=== PATIENT | male | born 1965 | race Caucasian/White ===

== ENCOUNTER 2017-02-06 10:27 | Inpatient (IN) | payer MEDICAID, OTHER ==
--- NOTE | 2017-02-06 11:59 | RAD ---
HISTORY: cough/sob COMPARISON: Chest x-ray portion of obstructive series performed 10/25/13 TECHNIQUE: Chest PA and lateral FINDINGS: Examination limited by habitus. LUNGS: No focal consolidation. Please note that chest x-ray has limited sensitivity for the detection of pulmonary masses. PLEURA: No significant pleural effusion identified. No definite pneumothorax . CARDIOVASCULAR: The cardiomediastinal silhouette appears within normal limits of size. OSSEOUS STRUCTURES: Degenerative changes of the spine. VISUALIZED UPPER ABDOMEN: Unremarkable. OTHER FINDINGS: None. IMPRESSION: No focal consolidation, significant pleural effusion, or definite pneumothorax identified.
--- NOTE | 2017-02-06 12:32 | C.PDOC ---
History Of Present Illness Benoit Guan, 51-year-old male who denies significant PMHx, presents to the emergency department with complaints of shortness of breath. Patient states he has been experiencing a non-productive cough for the past four weeks. Patient states he is taking Mucinex at home with minimal relief. One week ago, he developed dyspnea on exertion and worsening shortness of breath, resulting in him coming to the ED for evaluation. Denies chest pain, fevers, dizziness, nausea/vomiting, or any other associated symptoms. No other complaints at this time. Chief Complaint (Nursing): Shortness Of Breath History Per: Patient History/Exam Limitations: no limitations Onset/Duration Of Symptoms: Days Current Symptoms Are (Timing): Still Present Past Medical History Reviewed: Historical Data, Nursing Documentation, Vital Signs Vital Signs: Last Vital Signs Temp 98.5 F 02/06/17 15:10 Pulse 81 02/06/17 15:54 Resp 16 02/06/17 15:54 BP 136/75 02/06/17 15:54 Pulse Ox 96 02/06/17 15:58 Surgical History: Cholecystectomy Family History: States: Unknown Family Hx - Social History Hx Tobacco Use: No Hx Alcohol Use: Yes Hx Substance Use: No - Immunization History Hx Tetanus Toxoid Vaccination: No Hx Influenza Vaccination: No Hx Pneumococcal Vaccination: No Review Of Systems Except As Marked, All Systems Reviewed And Found Negative. Constitutional: Negative for: Fever, Chills Respiratory: Positive for: Cough, Shortness of Breath, SOB with Excertion Gastrointestinal: Negative for: Nausea, Vomiting Musculoskeletal: Negative for: Back Pain Skin: Negative for: Rash Neurological: Negative for: Weakness, Numbness, Headache, Dizziness Physical Exam - Physical Exam Appears: Non-toxic, No Acute Distress Skin: Warm, Dry, Pale, No Rash Head: Atraumatic, Normacephalic Eye(s): bilateral: Normal Inspection, PERRL, EOMI, Conjunctiva Pale Nose: Normal Oral Mucosa: Moist Lips: Normal Appearing Neck: Normal ROM Cardiovascular: Rhythm Regular, No Edema Respiratory: Decreased Breath Sounds, No Accessory Muscle Use, No Rales, No Rhonchi, No Wheezing Rectal: Other (brown stool heme positive. ) Extremity: Normal ROM Neurological/Psych: Oriented x3, Normal Speech ED Course And Treatment - Laboratory Results Result Diagrams: 02/06/17 12:52 02/06/17 12:33 ECG: Interpreted By Me, Viewed By Me ECG Rhythm: Sinus Rhythm ECG Interpretation: No Acute Changes Rate From EC O2 Sat by Pulse Oximetry: 96 - Radiology CXR: Viewed By Me, Read By Radiologist (No focal consolidation, significant pleural effusion, or definite pneumothorax identified.) - CT Scan/US CT CHEST Other Rad Studies (CT/US): Read By Radiologist, Radiology Report Reviewed CT/US Interpretation: Accession No. : [id number]. Patient Name / ID : SAYRA VARELA / [id number]. Exam Date : 02/06/2017 14:26:30 ( Approved ). Study Comment : Sex / Age : M / 51Y. Creator : Sarah Beth Mckeon MD. Dictator : Sarah Beth Mckeon MD. Appeals Reviewer Veteran : [employer] : Sarah Beth Mckeon MD. Approver2 : Report Date : 02/06/2017 14:57:59. My Comment : . CT chest with IV contrast. Indication: Shortness of breath, elevated D- dimer. Technique: Contiguous axial images were obtained through the chest with intravenous contrast enhancement. Sagittal and coronal reconstructions were performed. This CT exam was performed using 1 or more of the falling dose reduction techniques: Automated exposure control, adjustment of the MAA and/or kV according to patient size, and/or use of iterative reconstruction technique. IV Contrast: 100 mL Visipaque. . Radiation dose (DLP): 603.76 MGy-cm. Comparison: Chest x-ray performed earlier the same day. Findings: Visualized portions of the inferior thyroid gland demonstrates 7 mm hypodense nodule within the left lower pole. The mediastinal and hilar vascular structures appear within normal limits. The heart appears within normal limits of size. No large central pulmonary embolus identified. Bilateral pulmonary emboli are noted within the right upper lobe and right middle lobe, as well as bilateral lower lobe pulmonary artery branches. No focal consolidation. No pleural effusion. No pneumothorax. No suspicious pulmonary nodules measuring greater than 5 mm. Moderate to large hiatal hernia. Limited visualization of the upper abdomen reveals cholecystectomy clips. Degenerative changes of the spine. Impression: Bilateral pulmonary emboli as above. 7 mm hyperdense nodule, left lower pole. Moderate to large hiatal hernia. Cholecystectomy clips. Emergent findings discussed with Dr. He on 02/06/17 at 2:55 p.m.. Progress Note: Plan: EKG. BNP, CK-MB, CMP, C Phos, Trop I. CBC, PT, PTT, D- Dimer. Chest X-Ray. Urinalysis. Reassess and Disposition. Progress: Patient is guaiac positive on physical exam, and severely anemic. Pts Hgb is 4.9 , his D-dimer elevated. CTA Chest ordered and reviewed, which reveals a B/L PE. Case discussed w/ Dr Bailey from ICU, who accepts pt to unit and requests a STAT echo and B/L LE duplex scan. Case discussed w/ Dr Torres, hospitalist, who accepts patient to his service. Disposition - Disposition Disposition: HOSPITALIZED Disposition Time: 15:22 Condition: SERIOUS - Clinical Impression Clinical Impression: Pulmonary embolism, GI bleed, Symptomatic anemia - Scribe Statement The provider has reviewed the documentation as recorded by the Cuong Varghese All medical record entries made by the Wesibeloy were at my direction and personally dictated by me. I have reviewed the chart and agree that the record accurately reflects my personal performance of the history, physical exam, medical decision making, and the department course for this patient. I have also personally directed, reviewed, and agree with the discharge instructions and disposition. Decision To Admit - Pt Status Changed To: Hospital Disposition Of: Inpatient - Admit Certification Admit to Inpatient:: After my assessment, the patient will require hospitalization for at least two midnights. This is because of the severity of symptoms shown, intensity of services needed, and/or the medical risk in this patient being treated as an outpatient. - InPatient: Physician Admission Certification: I certify that this patient requires 2 or more midnights of care for the following reason:: see notes - . Bed Request Type: ICU Admitting Physician: Romulo Torres Patient Diagnosis: Pulmonary embolism, GI bleed, Symptomatic anemia
[2017-02-06 12:44] LABS: CHLORIDE 100 mmol/L (98-107)
[2017-02-06 12:45] LABS: POTASSIUM 3.5 mmol/L (3.6-5.2); SODIUM 140 mmol/L (132-148)
[2017-02-06 12:47] LABS: ALB/GLOB RATIO 1.2 (1.0-2.1); ALKALINE PHOSPHATASE 61 U/L (38-126); ALT/SGPT 17 U/L (21-72); AST/SGOT 19 U/L (17-59); BILIRUBIN,TOTAL 0.3 mg/dL (0.2-1.3); BLOOD UREA NITROGEN 14 mg/dL (9-20); CARBON DIOXIDE 26 mmol/L (22-30); GFR AFRICAN-AMERICAN > 60; TOTAL PROTEIN 6.7 g/dL (6.3-8.3)
[2017-02-06 12:48] LABS: CALCIUM 8.2 mg/dl (8.6-10.4); GLUCOSE,RANDOM 86 mg/dL (75-110)
[2017-02-06 12:52] LABS: INR 1.1
[2017-02-06 12:56] LABS: BASO # 0.1 K/uL (0.0-0.2); EOS # 0.3 K/uL (0.0-0.7); MEAN PLATELET VOLUME 8.1 fL (7.2-11.7)
[2017-02-06 12:59] LABS: EOS % 3.5 % (0.0-4.0); HEMATOCRIT 17.5 % (35.0-51.0); LYMPH # 2.7 K/uL (1.0-4.3); LYMPH % 32.9 % (20.0-40.0); MEAN CORPUSCULAR HEMOGLOBIN 16.6 pg (27.0-31.0); MEAN CORPUSCULAR HGB CONC 27.9 g/dL (33.0-37.0); MONO # 0.8 K/uL (0.0-0.8); MONO % 9.5 % (0.0-10.0); RED CELL DISTRIBUTION WIDTH 18.5 % (11.5-14.5)
[2017-02-06 13:05] LABS: MEAN CELL VOLUME 59.4 fL (80.0-94.0); WHITE BLOOD COUNT 8.3 K/uL (4.8-10.8)
[2017-02-06] MEDS ORDERED: Iodixanol 320 MG/ML 100 ML BOTTLE IV ONE (14:08)
--- NOTE | 2017-02-06 14:59 | CT ---
CT chest with IV contrast Indication: Shortness of breath, elevated D-dimer Technique: Contiguous axial images were obtained through the chest with intravenous contrast enhancement. Sagittal and coronal reconstructions were performed. This CT exam was performed using 1 or more of the falling dose reduction techniques: Automated exposure control, adjustment of the MAA and/or kV according to patient size, and/or use of iterative reconstruction technique IV Contrast: 100 mL Visipaque Radiation dose (DLP): 603.76 MGy-cm. Comparison: Chest x-ray performed earlier the same day. Findings: Visualized portions of the inferior thyroid gland demonstrates 7 mm hypodense nodule within the left lower pole. The mediastinal and hilar vascular structures appear within normal limits. The heart appears within normal limits of size. No large central pulmonary embolus identified. Bilateral pulmonary emboli are noted within the right upper lobe and right middle lobe, as well as bilateral lower lobe pulmonary artery branches. No focal consolidation. No pleural effusion. No pneumothorax. No suspicious pulmonary nodules measuring greater than 5 mm. Moderate to large hiatal hernia. Limited visualization of the upper abdomen reveals cholecystectomy clips. Degenerative changes of the spine. Impression: Bilateral pulmonary emboli as above. 7 mm hyperdense nodule, left lower pole. Moderate to large hiatal hernia. Cholecystectomy clips. Emergent findings discussed with Dr. He on 02/06/17 at 2:55 p.m..
--- NOTE | 2017-02-06 15:52 | CP.PCM.HP ---
<Sydni Hilario - Last Filed: 02/06/17 18:30> History of Present Illness - History of Present Illness History of Present Illness: CC: Cough with shortness of breath HPI: 51 year old male with PMHx significant for internal hemorrhoids and diverticulitis presents with complaints of non-productive cough for 4 week duration. Patient states that he started taking Mucinex at home without any relief. He states that he recently started experiencing some lightheadedness as well as some dyspnea but not necessarily with exertion. Patient also admitted to some left calf pain approx one week ago. Patient states that he lost his job sometime around fall and became a bit more sedentary that he would like. He denies sitting on the sofa endlessly; however states that he could have exercised more. Patient denies chest pain, palpitations, paresthesias, headaches , recent long distance travel greater than 3 hours, trauma, recent surgeries, nausea, vomiting or diarrhea at this time. PMHx: as listed above; no history of hematologic disorder PSHx: Cholecystectomy Fam Hx: Mother recently had surgery for brain tumor Social Hx: Smoked as a teen ( rare occasion); drinks scotch every couple of weeks; admits to social marijuana use ( last July 2016) Meds: Mucinex, Tylenol PM; Supplements: Acidophilus, Saw palmetto, fish oil Allergies: PCN ( unclear reaction) PMD: Dr. Darvin Stoll ( Last visited in the summer) In ED: Hgb noted to be 4.9; stool occult blood noted to be positive; D-Dimer elevated. Patient being transfused PRBC. Present on Admission - Present on Admission Any Indicators Present on Admission: Yes History of DVT/PE: Yes Review of Systems - Constitutional Constitutional: absent: Chills - EENT Eyes: absent: Blurred Vision, Change in Vision Ears: absent: Decreased Hearing, Ear Discharge Nose/Mouth/Throat: absent: Nasal Congestion, Nasal Discharge - Cardiovascular Cardiovascular: Dyspnea. absent: Chest Pain, Chest Pain at Rest - Respiratory Respiratory: Cough, Dyspnea - Gastrointestinal Gastrointestinal: absent: Abdominal Pain - Genitourinary Genitourinary: Urinary Frequency - Musculoskeletal Musculoskeletal: absent: Back Pain, Neck Pain - Integumentary Integumentary: absent: Dry Skin - Neurological Neurological: absent: Abnormal Movements - Psychiatric Psychiatric: absent: Change in Appetite - Endocrine Endocrine: absent: Fatigue - Hematologic/Lymphatic Hematologic: absent: Easy Bleeding, Easy Bruising Past Patient History - Infectious Disease Hx of Infectious Diseases: None - Past Social History Smoking Status: Former Smoker Alcohol: Occasional Drugs: Cannabis - PSYCHIATRIC Hx Substance Use: No - SURGICAL HISTORY Hx Cholecystectomy: Yes Meds Allergies/Adverse Reactions: Allergies Allergy/AdvReac Type Severity Reaction Status Date / Time Penicillins Allergy Verified 02/06/17 10:36 Physical Exam - Constitutional Appears: Non-toxic, No Acute Distress - Head Exam Head Exam: ATRAUMATIC, NORMAL INSPECTION, NORMOCEPHALIC - Eye Exam Eye Exam: EOMI, Normal appearance, PERRL Pupil Exam: NORMAL ACCOMODATION, PERRL Additional comments: eyelid pallor b/l - ENT Exam ENT Exam: Mucous Membranes Moist - Neck Exam Neck exam: Positive for: Full Rom - Respiratory Exam Respiratory Exam: Clear to Auscultation Bilateral, NORMAL BREATHING PATTERN. absent: Wheezes - Cardiovascular Exam Cardiovascular Exam: +S1, +S2 - GI/Abdominal Exam GI & Abdominal Exam: Normal Bowel Sounds, Soft - Extremities Exam Extremities exam: Positive for: full ROM, normal inspection. Negative for: pedal edema - Back Exam Back exam: FULL ROM - Neurological Exam Neurological exam: Alert, CN II-XII Intact, Oriented x3 - Psychiatric Exam Psychiatric exam: Normal Affect, Normal Mood - Skin Skin Exam: Dry, Normal Color, Pallor, Warm Results - Vital Signs Recent Vital Signs: Last Vital Signs Temp 98.5 F 02/06/17 15:10 Pulse 88 02/06/17 15:10 Resp 16 02/06/17 15:10 BP 134/73 02/06/17 15:10 Pulse Ox 96 02/06/17 15:51 - Labs Result Diagrams: 02/06/17 12:52 02/06/17 12:33 Assessment & Plan (1) Pulmonary embolism Assessment and Plan: CTA: noted bilateral pulmonary embolism as well as hiatal hernia noted F/U EKG F/U ECHO to rule out right heart strain Hemodynamically stable Dr. Johann Avendaño on the case Status: Acute (2) Anemia Assessment and Plan: Hgb 4.9. Currently receiving two units PRBC. Type and screen for 2 additional units . Will need to transfuse as needed. F/U CBC Monitor for hemodynamic stability Hypercoagulability and Anemia workup Dr. Gallagher on the case Status: Acute (3) DVT (deep venous thrombosis) Assessment and Plan: Venous dopplers: Positive DVT in LLE Pt would likely benefit from IVC filter Consult to Dr. Cai IR for IVC filter placement. Will evaluate in AM Status: Acute (4) Positive occult stool blood test Assessment and Plan: Positive stool occult blood- Rule out GI bleed With Bilateral PE and low Hgb- GI will hold off on EGD at this time F/U GI (Dr. Shepherd) recommendations Status: Acute (5) Prophylactic measure Assessment and Plan: SCDs contraindicated in light of DVT Chemical anticoagulation contraindication in light of low Hgb with suspected GI bleed PPI daily Status: Acute - Assessment and Plan (Free Text) Assessment: 51 year old male with PMHx significant for internal hemorrhoids and diverticulitis presents with cough of four week duration associated with some dyspnea. Bilateral PE, hiatal hernia and low Hgb of 4.9 noted for which patient is currently being transfused. Patient admitted to ICU for critical care monitoring. <Romulo Torres - Last Filed: 02/06/17 19:21> Results - Vital Signs Recent Vital Signs: Last Vital Signs Temp 98.5 F 02/06/17 17:15 Pulse 78 02/06/17 17:15 Resp 16 02/06/17 17:15 BP 118/76 02/06/17 17:15 Pulse Ox 100 02/06/17 17:15 - Labs Result Diagrams: 02/06/17 12:52 02/06/17 12:33 Attending/Attestation - Attestation I have personally seen and examined this patient.: Yes I have fully participated in the care of the patient.: Yes I have reviewed all pertinent clinical information: Yes Notes (Text): 02/06/17 19:18 Medical Attending: Patient was seen and examined while he was still in the ER. I am suprised by his normal HR and also normal BP - I explained this to him. The patient has on CTA extensive pulmonary embolism. He reports he's not short of breath, and denied chest pain. He states he has been using mucinex to help with coughing but he did not think much of it. The CT also suggested a large hernia as well. Also the low Hgb as well noted. Currently he is being transfused PRBC and I explained to the patient that likley he will need more PRBCs. Because of the PE, currently pending echo to be done to assess the right ventricle as well as right atrium. On exam he did not seem to have heart mumurs and I did not personally see JVD - however I should add that he is a very morbidly obese person and his neck is very large. A stool guiac by ER was positive. thank you Romulo Torres
--- NOTE | 2017-02-06 15:52 | CP.PCM.CON ---
<Sydni Hilario - Last Filed: 02/06/17 18:17> History of Present Illness - History of Present Illness History of Present Illness: CRITICAL CARE CONSULT NOTE CC: Cough with shortness of breath HPI: 51 year old male with PMHx significant for internal hemorrhoids and diverticulitis presents with complaints of non-productive cough for 4 week duration. Patient states that he started taking Mucinex at home without any relief. He states that he recently started experiencing some lightheadedness as well as some dyspnea but not necessarily with exertion. Patient also admitted to some left calf pain approx one week ago. Patient states that he lost his job sometime around fall and became a bit more sedentary that he would like. He denies sitting on the sofa endlessly; however states that he could have exercised more. Patient denies chest pain, palpitations, paresthesias, headaches , recent long distance travel greater than 3 hours, trauma, recent surgeries, nausea, vomiting or diarrhea at this time. PMHx: as listed above; no history of hematologic disorder PSHx: Cholecystectomy Fam Hx: Mother recently had surgery for brain tumor Social Hx: Smoked as a teen ( rare occasion); drinks scotch every couple of weeks; admits to social marijuana use ( last July 2016) Meds: Mucinex, Tylenol PM; Supplements: Acidophilus, Saw palmetto, fish oil Allergies: PCN ( unclear reaction) PMD: Dr. Darvin Stoll ( Last visited in the summer) In ED: Hgb noted to be 4.9; stool occult blood noted to be positive; D-Dimer elevated. Patient being transfused PRBC. Review of Systems - Constitutional Constitutional: absent: Chills, Fever - EENT Eyes: absent: Change in Vision Nose/Mouth/Throat: absent: Epistaxis, Nasal Congestion - Cardiovascular Cardiovascular: absent: Chest Pain, Chest Pain at Rest - Respiratory Respiratory: Cough. absent: Dyspnea, Dyspnea on Exertion - Gastrointestinal Gastrointestinal: absent: Abdominal Pain, Bloating, Heartburn, Nausea - Genitourinary Genitourinary: Urinary Frequency - Neurological Neurological: absent: Tingling, Weakness - Psychiatric Psychiatric: absent: Anxiety Past Patient History - Infectious Disease Hx of Infectious Diseases: None - Past Social History Smoking Status: Former Smoker Alcohol: Occasional Drugs: Cannabis - PSYCHIATRIC Hx Substance Use: No - SURGICAL HISTORY Hx Cholecystectomy: Yes Meds Allergies/Adverse Reactions: Allergies Allergy/AdvReac Type Severity Reaction Status Date / Time Penicillins Allergy Verified 02/06/17 10:36 Physical Exam - Constitutional Appears: Non-toxic, No Acute Distress - Head Exam Head Exam: ATRAUMATIC, NORMAL INSPECTION, NORMOCEPHALIC - Eye Exam Eye Exam: EOMI, PERRL Additional comments: pallor of eyelids noted - ENT Exam ENT Exam: Mucous Membranes Moist - Neck Exam Neck exam: Positive for: Full Rom - Respiratory Exam Respiratory Exam: Clear to Auscultation Bilateral, NORMAL BREATHING PATTERN. absent: Wheezes - Cardiovascular Exam Cardiovascular Exam: REGULAR RHYTHM, +S1, +S2 - GI/Abdominal Exam GI & Abdominal Exam: Normal Bowel Sounds, Soft. absent: Tenderness - Rectal Exam Rectal Exam: Deferred - Extremities Exam Extremities exam: Positive for: full ROM, normal capillary refill, pedal pulses present. Negative for: calf tenderness (no current calf tenderness.), tenderness - Back Exam Back exam: FULL ROM, NORMAL INSPECTION - Neurological Exam Neurological exam: Alert, CN II-XII Intact, Oriented x3 - Psychiatric Exam Psychiatric exam: Normal Affect, Normal Mood - Skin Skin Exam: Dry, Intact, Normal Color, Pallor, Warm Results - Vital Signs Recent Vital Signs: Last Vital Signs Temp 98.5 F 02/06/17 15:10 Pulse 88 02/06/17 15:10 Resp 16 02/06/17 15:10 BP 134/73 02/06/17 15:10 Pulse Ox 96 02/06/17 15:51 - Labs Result Diagrams: 02/06/17 12:52 02/06/17 12:33 Assessment & Plan - Assessment and Plan (Free Text) Assessment: 51 year old male with PMHx significant for internal hemorrhoids and diverticulitis presents with cough of four week duration associated with some dyspnea. Bilateral PE, hiatal hernia and low Hgb of 4.9 noted for which patient is currently being transfused. Patient admitted to ICU for critical care monitoring. Plan: Neuro: aaox3 in nad Cardio: F/U EKG F/U ECHO Hemodynamically stable Dr. Johann Avendaño on the case Pulm: CTA: noted bilateral pulmonary embolism as well as hiatal hernia noted GI: Positive stool occult blood- Rule out GI bleed With Bilateral PE and low Hgb- GI will hold off on EGD at this time F/U GI recommendations Endo: F/U Thyroid studies, [id number] Heme: Hgb 4.9. Currently receiving two units PRBC. Type and screen for 2 additional units . Will need to transfuse as needed. Monitor for hemodynamic stability Hypercoagulability and Anemia workup Dr. Gallagher on the case Vasc: Venous dopplers: Positive DVT in LLE Pt would likely benefit from IVC filter Consult to IR for IVC filter placement. Prophylaxis: SCDs contraindicated in light of DVT Chemical anticoagulation contraindication in light of low Hgb with suspected GI bleed PPI daily <Juan Francisco Bailey - Last Filed: 02/06/17 18:36> Meds - Medications Medications: Current Medications Pantoprazole Sodium (Protonix Inj) 40 mg IVP DAILY MANUEL Results - Vital Signs Recent Vital Signs: Last Vital Signs Temp 98.5 F 02/06/17 17:15 Pulse 78 02/06/17 17:15 Resp 16 02/06/17 17:15 BP 118/76 02/06/17 17:15 Pulse Ox 100 02/06/17 17:15 - Labs Result Diagrams: 02/06/17 12:52 02/06/17 12:33 Attending/Attestation - Attestation I have personally seen and examined this patient.: Yes I have fully participated in the care of the patient.: Yes I have reviewed all pertinent clinical information: Yes Notes (Text): 02/06/17 18:34 Patient seen and examined. 51 year old male with PMHx significant for internal hemorrhoids and diverticulitis presents with cough of four week duration associated with some dyspnea. Bilateral PE, hiatal hernia and low Hgb of 4.9 noted for which patient is currently being transfused. Patient admitted to ICU for critical care monitoring Patient lying comfortably in no acute distress with saturation of 100% and heart rate in the 80s Doppler of legs positive for DVT IR consult for IVC filter Not a candidate for anticoagulation Hematology consult Echocardiogram
[2017-02-06] MEDS ORDERED: Pantoprazole 80 MG in Sodium Chloride 0.9% 100 ML IV SCH (17:00)
--- NOTE | 2017-02-06 18:04 | CP.PCM.CON ---
History of Present Illness - History of Present Illness History of Present Illness: 51 year old male with a history of hemorrhoids, diverticulosis, admitted with prolonged cough, found to have PE, left leg DVT, and anemia. The patient denies abnormal bleeding and bruising. He was taking Mucinex for several weeks as he thought he had a cold. He denies trauma to his extremities or prolonged immobility. Past medical history: hemorrhoids, diverticulosis Past surgical history: Cholecystectomy, hemorrhoidectomy Family history: Sister had a DVT at age 50 Social history: Denies tobacco, drinks alcohol socially, and denies illicit drug use. Allergies: Pencillins Review of systems: All remaining review of systems including HEENT, cardiovascular, respiratory, gastrointestinal, genitourinary, musculoskeletal, dermatologic, neurologic, and psychiatric are negative unless mentioned in the HPI. Past Patient History - Infectious Disease Hx of Infectious Diseases: None - Past Social History Smoking Status: Former Smoker Alcohol: Occasional Drugs: Cannabis - PSYCHIATRIC Hx Substance Use: No - SURGICAL HISTORY Hx Cholecystectomy: Yes Meds Allergies/Adverse Reactions: Allergies Allergy/AdvReac Type Severity Reaction Status Date / Time Penicillins Allergy Verified 02/06/17 10:36 - Medications Medications: Current Medications Pantoprazole Sodium (Protonix Inj) 40 mg IVP DAILY MANUEL Physical Exam - Head Exam Head Exam: ATRAUMATIC - Eye Exam Eye Exam: Normal appearance - ENT Exam ENT Exam: Mucous Membranes Dry - Respiratory Exam Respiratory Exam: NORMAL BREATHING PATTERN - Cardiovascular Exam Cardiovascular Exam: +S1, +S2 - GI/Abdominal Exam GI & Abdominal Exam: Normal Bowel Sounds - Extremities Exam Extremities exam: Positive for: pedal edema - Neurological Exam Neurological exam: Oriented x3 - Psychiatric Exam Psychiatric exam: Normal Affect, Normal Mood - Skin Skin Exam: Warm Results - Vital Signs Recent Vital Signs: Last Vital Signs Temp 98.5 F 02/06/17 17:15 Pulse 78 02/06/17 17:15 Resp 16 02/06/17 17:15 BP 118/76 02/06/17 17:15 Pulse Ox 100 02/06/17 17:15 - Labs Result Diagrams: 02/06/17 12:52 02/06/17 12:33 Assessment & Plan (1) Anemia Assessment and Plan: microcytic anemia with FOBT positive rule out iron deficiency agree with transfusion support GI evaluation Status: Acute (2) Pulmonary embolism Assessment and Plan: with left LE DVT given anemia and FOBT, unable to anticoagulate agree with IVC filter placement Thank you for this interesting consult. Status: Acute
[2017-02-07 06:29] LABS: BASO % 0.6 % (0.0-2.0); EOS # 0.3 K/uL (0.0-0.7); EOS % 4.4 % (0.0-4.0); HEMATOCRIT 28.9 % (35.0-51.0); LYMPH # 2.4 K/uL (1.0-4.3); LYMPH % 31.9 % (20.0-40.0); MEAN CELL VOLUME 68.7 fL (80.0-94.0); MEAN CORPUSCULAR HEMOGLOBIN 21.3 pg (27.0-31.0); MEAN CORPUSCULAR HGB CONC 31.1 g/dL (33.0-37.0); MEAN PLATELET VOLUME 8.3 fL (7.2-11.7); MONO # 0.8 K/uL (0.0-0.8); MONO % 10.5 % (0.0-10.0); RED CELL DISTRIBUTION WIDTH 28.4 % (11.5-14.5); WHITE BLOOD COUNT 7.6 K/uL (4.8-10.8)
[2017-02-07 06:34] LABS: CHLORIDE 99 mmol/L (98-107); IRON 37 ug/dL (49-181)
[2017-02-07 06:35] LABS: POTASSIUM 3.4 mmol/L (3.6-5.2); SODIUM 141 mmol/L (132-148)
[2017-02-07 06:37] LABS: ALB/GLOB RATIO 1.2 (1.0-2.1); AST/SGOT 24 U/L (17-59); BILIRUBIN,TOTAL 1.4 mg/dL (0.2-1.3); BLOOD UREA NITROGEN 10 mg/dL (9-20); CARBON DIOXIDE 28 mmol/L (22-30); CHOLESTEROL 148 mg/dL (0-199); GFR AFRICAN-AMERICAN > 60; TOTAL PROTEIN 7.2 g/dL (6.3-8.3)
[2017-02-07 06:38] LABS: ALKALINE PHOSPHATASE 72 U/L (38-126); ALT/SGPT 23 U/L (21-72); CALCIUM 7.9 mg/dl (8.6-10.4); GLUCOSE,RANDOM 81 mg/dL (75-110); MAGNESIUM 2.3 mg/dL (1.6-2.3); PHOSPHOROUS 3.9 mg/dL (2.5-4.5)
[2017-02-07 06:46] LABS: HOMOCYSTEINE 10.5 umol/L (6.6-14.8)
[2017-02-07 07:10] LABS: THYROID STIMULATING HORMONE 3.89 mIU/L (0.46-4.68)
--- NOTE | 2017-02-07 07:35 | CP.CCUPN ---
<Sydni Hilario - Last Filed: 02/07/17 16:59> CCU Subjective - Physician Review Subjective (Free Text): 02/07/17 16:22 Pt seen and examined earlier in no acute distress. Patient states that he has a cough with associated deep breathing intermittently. Patient for IVC filter placement today. Otherwise, no other acute complaints. He denies subjective fevers, chills, nausea, vomiting, diarrhea, chest pain, palpitations or headaches at this time. CCU Objective - Vital Signs / Intake & Output Vital Signs (Last 4 hours): Vital Signs Temp Pulse Resp BP Pulse Ox 02/07/17 07:00 68 12 100 02/07/17 06:51 68 14 109/65 100 02/07/17 06:36 62 19 118/78 98 02/07/17 06:21 70 21 114/78 100 02/07/17 06:06 61 17 108/72 98 02/07/17 06:05 62 17 98 02/07/17 06:00 66 20 98 02/07/17 05:51 66 20 124/79 98 02/07/17 05:36 66 17 122/78 100 02/07/17 05:21 65 9 L 123/80 99 02/07/17 05:16 69 17 100 02/07/17 05:15 98.3 F 67 15 122/79 02/07/17 05:13 65 19 122/79 100 02/07/17 05:06 63 17 118/77 98 02/07/17 05:00 67 12 99 02/07/17 04:51 63 20 128/81 99 02/07/17 04:36 64 18 119/78 100 02/07/17 04:22 64 17 98 02/07/17 04:21 64 20 114/77 97 02/07/17 04:20 98.4 F 65 20 114/77 02/07/17 04:06 67 12 123/84 99 02/07/17 04:00 98.5 F 66 14 100 02/07/17 03:51 67 15 116/73 99 02/07/17 03:36 64 17 118/77 97 Intake and Output (Last 8hrs): Intake & Output 02/06/17 02/07/17 02/07/17 22:59 06:59 14:59 Intake Total 325 650 Output Total 1130 900 Balance -805 -250 Weight 251 lb 251 lb Intake: Oral 0 Blood Product 325 650 Red Blood Cells Cpd As1 325 Lr Unit [id number] Red Blood Cells Cp2d As3 325 Lr Unit [id number] Red Blood Cells Cp2d As3 325 Lr Unit [id number] Output: Urine 1130 900 Urine, Voided 1130 900 Stool 0 Other: # Bowel Movements 1 - Physical Exam Head: Positive for: Atraumatic, Normocephalic Pupils: Positive for: PERRL Extroacular Muscles: Positive for: EOMI Conjunctiva: Positive for: Normal Mouth: Positive for: Moist Mucous Membranes Neck: Positive for: Normal Range of Motion Respiratory/Chest: Positive for: Good Air Exchange. Negative for: Wheezes Cardiovascular: Positive for: Normal S1, S2 Abdomen: Positive for: Normal Bowel Sounds. Negative for: Tenderness Back: Positive for: Normal Inspection Upper Extremity: Positive for: Normal Inspection Lower Extremity: Positive for: Normal Inspection Neurological: Positive for: CN II-XII Intact Skin: Positive for: Warm, Dry, Normal Color Psychiatric: Positive for: Alert, Oriented x 3 - Medications Active Medications: Active Medications Generic Name Dose Route Start Last Admin Trade Name Freq PRN Reason Stop Dose Admin Pantoprazole Sodium 40 mg 02/07/17 10:00 Protonix Inj IVP DAILY MANUEL - Patient Studies Lab Studies: Lab Studies 02/07/17 02/07/17 Range/Units 06:21 06:17 WBC 7.6 (4.8-10.8) K/uL RBC 4.20 L (4.40-5.90) Mil/uL Hgb 9.0 L D (12.0-18.0) g/dL Hct 28.9 L (35.0-51.0) % MCV 68.7 L D (80.0-94.0) fL MCH 21.3 L (27.0-31.0) pg MCHC 31.1 L (33.0-37.0) g/dL RDW 28.4 H (11.5-14.5) % Plt Count 474 H (130-400) K/uL MPV 8.3 (7.2-11.7) fL Neut % (Auto) 52.6 (50.0-75.0) % Lymph % (Auto) 31.9 (20.0-40.0) % Love % (Auto) 10.5 H (0.0-10.0) % Eos % (Auto) 4.4 H (0.0-4.0) % Baso % (Auto) 0.6 (0.0-2.0) % Neut # 4.0 (1.8-7.0) K/uL Lymph # 2.4 (1.0-4.3) K/uL Love # 0.8 (0.0-0.8) K/uL Eos # 0.3 (0.0-0.7) K/uL Baso # 0.0 (0.0-0.2) K/uL Retic Count 1.6 H (0.5-1.5) % APTT 25 (21-34) SECONDS Sodium 141 (132-148) mmol/L Potassium 3.4 L (3.6-5.2) mmol/L Chloride 99 (98-107) mmol/L Carbon Dioxide 28 (22-30) mmol/L Anion Gap 17 (10-20) BUN 10 (9-20) mg/dL Creatinine 1.0 (0.8-1.5) MG/DL Est GFR ( Amer) > 60 Est GFR (Non-Af Amer) > 60 Random Glucose 81 (75-110) mg/dL Calcium 7.9 L (8.6-10.4) mg/dl Phosphorus 3.9 (2.5-4.5) mg/dL Magnesium 2.3 (1.6-2.3) mg/dL Iron 37 L (49-181) ug/dL TIBC 443 (250-450) ug/dL % Saturation 8 L (20-55) Ferritin 6.2 ng/mL Total Bilirubin 1.4 H (0.2-1.3) mg/dL AST 24 (17-59) U/L ALT 23 (21-72) U/L Alkaline Phosphatase 72 (38-126) U/L Lactate Dehydrogenase 497 (313-618) U/L Total Protein 7.2 (6.3-8.3) g/dL Albumin 4.0 (3.5-5.0) g/dL Globulin 3.3 (2.2-3.9) gm/dL Albumin/Globulin Ratio 1.2 (1.0-2.1) Triglycerides 141 (0-149) mg/dL Cholesterol 148 (0-199) mg/dL LDL Cholesterol Direct 93 (0-129) mg/dL HDL Cholesterol 25 L (30-70) mg/dL Homocysteine 10.5 (6.6-14.8) umol/L Free T4 1.05 (0.78-2.19) ng/dL TSH 3rd Generation 3.89 (0.46-4.68) mIU/L Laboratory Results - last 24 hr 02/07/17 02/07/17 06:17 06:21 WBC 7.6 RBC 4.20 L Hgb 9.0 L D Hct 28.9 L MCV 68.7 L D MCH 21.3 L MCHC 31.1 L RDW 28.4 H Plt Count 474 H MPV 8.3 Neut % (Auto) 52.6 Lymph % (Auto) 31.9 Love % (Auto) 10.5 H Eos % (Auto) 4.4 H Baso % (Auto) 0.6 Neut # 4.0 Lymph # 2.4 Love # 0.8 Eos # 0.3 Baso # 0.0 Retic Count 1.6 H APTT 25 Sodium 141 Potassium 3.4 L Chloride 99 Carbon Dioxide 28 Anion Gap 17 BUN 10 Creatinine 1.0 Est GFR ( Amer) > 60 Est GFR (Non-Af Amer) > 60 Random Glucose 81 Calcium 7.9 L Phosphorus 3.9 Magnesium 2.3 Iron 37 L TIBC 443 % Saturation 8 L Ferritin 6.2 Total Bilirubin 1.4 H AST 24 ALT 23 Alkaline Phosphatase 72 Lactate Dehydrogenase 497 Total Protein 7.2 Albumin 4.0 Globulin 3.3 Albumin/Globulin Ratio 1.2 Triglycerides 141 Cholesterol 148 LDL Cholesterol Direct 93 HDL Cholesterol 25 L Homocysteine 10.5 Free T4 1.05 TSH 3rd Generation 3.89 Review of Systems - Review of Systems Review of Systems: see subjective Assessment/Plan (1) Pulmonary embolism Current Visit: Yes Status: Acute (2) Anemia Current Visit: Yes Status: Acute (3) DVT (deep venous thrombosis) Current Visit: Yes Status: Acute (4) Positive occult stool blood test Current Visit: Yes Status: Acute (5) Prophylactic measure Current Visit: Yes Status: Acute - Assessment and Plan (Free Text) Assessment: 51 year old male with PMHx significant for internal hemorrhoids and diverticulitis presents with cough of four week duration associated with some dyspnea. Bilateral PE, hiatal hernia and low Hgb of 4.9 noted for which patient is currently being transfused. Patient admitted to ICU for critical care monitoring. Plan: Neuro: aaox3 in NAD Cardio: EKG- NSR ECHO- LVEF 76% Refer to report. Hemodynamically stable Dr. Johann Avendaño on the case Pulm: CTA: noted bilateral pulmonary embolism as well as hiatal hernia noted GI: Positive stool occult blood- Rule out GI bleed Will benefit from endoscopic management now stabilized. Endo: TSH 3.89; Free T4 1.05 WNL, HgbA1c 5.7 Maintain euglycemia Heme: Hgb increased to 9.0. Pt received 4 units. Monitor for hemodynamic stability Hypercoagulability and Anemia workup Dr. Gallagher on the case Nephro: Hypokalemia- Repleted Vasc: Venous dopplers: Positive DVT in LLE IVC filter placed 02/07/17 Prophylaxis: SCDs contraindicated in light of DVT Chemical anticoagulation contraindication in light of low Hgb with suspected GI bleed PPI daily <Juan Francisco Bailey S - Last Filed: 02/07/17 17:16> CCU Objective - Vital Signs / Intake & Output Vital Signs (Last 4 hours): Vital Signs Temp Pulse Resp BP Pulse Ox 02/07/17 16:00 69 11 L 99 02/07/17 15:57 68 15 140/86 99 02/07/17 15:40 71 20 100 02/07/17 15:01 73 15 100 02/07/17 14:57 71 13 135/81 100 02/07/17 14:07 97.7 F 02/07/17 14:05 71 12 98 02/07/17 14:01 69 15 99 02/07/17 13:57 69 10 L 128/84 99 02/07/17 13:53 73 10 L 127/79 100 02/07/17 13:52 72 12 100 Intake and Output (Last 8hrs): Intake & Output 02/07/17 02/07/17 02/07/17 06:59 14:59 22:59 Intake Total 650 200 50 Output Total 900 740 280 Balance -250 -540 -230 Weight 251 lb Intake: Intake, IV Amount 200 Right Antecubital 200 Oral 0 50 Blood Product 650 Red Blood Cells Cp2d As3 325 Lr Unit [id number] Red Blood Cells Cp2d As3 325 Lr Unit [id number] Output: Urine 900 740 280 Urine, Voided 900 740 280 Other: # Bowel Movements 1 0 0 - Medications Active Medications: Active Medications Generic Name Dose Route Start Last Admin Trade Name Freq PRN Reason Stop Dose Admin Pantoprazole Sodium 40 mg 02/08/17 10:00 Protonix Ec Tab PO DAILY MANUEL - Patient Studies Lab Studies: Lab Studies 02/07/17 02/07/17 02/07/17 Range/Units 09:54 06:21 06:17 WBC 7.6 (4.8-10.8) K/uL RBC 4.20 L (4.40-5.90) Mil/uL Hgb 9.0 L D (12.0-18.0) g/dL Hct 28.9 L (35.0-51.0) % MCV 68.7 L D (80.0-94.0) fL MCH 21.3 L (27.0-31.0) pg MCHC 31.1 L (33.0-37.0) g/dL RDW 28.4 H (11.5-14.5) % Plt Count 474 H (130-400) K/uL MPV 8.3 (7.2-11.7) fL Neut % (Auto) 52.6 (50.0-75.0) % Lymph % (Auto) 31.9 (20.0-40.0) % Love % (Auto) 10.5 H (0.0-10.0) % Eos % (Auto) 4.4 H (0.0-4.0) % Baso % (Auto) 0.6 (0.0-2.0) % Neut # 4.0 (1.8-7.0) K/uL Lymph # 2.4 (1.0-4.3) K/uL Love # 0.8 (0.0-0.8) K/uL Eos # 0.3 (0.0-0.7) K/uL Baso # 0.0 (0.0-0.2) K/uL Retic Count 1.6 H (0.5-1.5) % PT 12.5 H (9.7-12.2) SECONDS INR 1.1 APTT 25 (21-34) SECONDS Puncture Site Rr pCO2 38 (35-45) mm/Hg pO2 89 (80-100) mm/Hg HCO3 26.2 (21-28) mmol/L ABG pH 7.44 (7.35-7.45) ABG Total CO2 27.0 (22-28) mmol/L ABG O2 Saturation 97.1 (95-98) % ABG Base Excess 1.6 (-2.0-3.0) mmol/L ABG Hemoglobin 8.7 L (11.7-17.4) g/dL ABG Carboxyhemoglobin 0.9 (0.5-1.5) % POC ABG HHb (Measured) 2.9 (0.0-5.0) % ABG Methemoglobin 0.3 (0.0-3.0) % Juan Test Pos A-a O2 Difference 56.0 mm/Hg Respiratory Index 0.6 Hgb O2 Saturation 95.9 (95.0-98.0) % Liter Flow 2.0 FiO2 27.0 % Sodium 141 (132-148) mmol/L Potassium 3.4 L (3.6-5.2) mmol/L Chloride 99 (98-107) mmol/L Carbon Dioxide 28 (22-30) mmol/L Anion Gap 17 (10-20) BUN 10 (9-20) mg/dL Creatinine 1.0 (0.8-1.5) MG/DL Est GFR ( Amer) > 60 Est GFR (Non-Af Amer) > 60 Random Glucose 81 (75-110) mg/dL Hemoglobin A1c 5.7 (4.2-6.5) % Calcium 7.9 L (8.6-10.4) mg/dl Phosphorus 3.9 (2.5-4.5) mg/dL Magnesium 2.3 (1.6-2.3) mg/dL Iron 37 L (49-181) ug/dL TIBC 443 (250-450) ug/dL % Saturation 8 L (20-55) Ferritin 6.2 ng/mL Total Bilirubin 1.4 H (0.2-1.3) mg/dL AST 24 (17-59) U/L ALT 23 (21-72) U/L Alkaline Phosphatase 72 (38-126) U/L Lactate Dehydrogenase 497 (313-618) U/L Total Protein 7.2 (6.3-8.3) g/dL Albumin 4.0 (3.5-5.0) g/dL Globulin 3.3 (2.2-3.9) gm/dL Albumin/Globulin Ratio 1.2 (1.0-2.1) Triglycerides 141 (0-149) mg/dL Cholesterol 148 (0-199) mg/dL LDL Cholesterol Direct 93 (0-129) mg/dL HDL Cholesterol 25 L (30-70) mg/dL Vitamin B12 257 (239-931) pg/mL Folate 19.4 ng/mL Homocysteine 10.5 (6.6-14.8) umol/L Free T4 1.05 (0.78-2.19) ng/dL TSH 3rd Generation 3.89 (0.46-4.68) mIU/L Laboratory Results - last 24 hr 02/07/17 02/07/17 02/07/17 06:17 06:21 09:54 WBC 7.6 RBC 4.20 L Hgb 9.0 L D Hct 28.9 L MCV 68.7 L D MCH 21.3 L MCHC 31.1 L RDW 28.4 H Plt Count 474 H MPV 8.3 Neut % (Auto) 52.6 Lymph % (Auto) 31.9 Love % (Auto) 10.5 H Eos % (Auto) 4.4 H Baso % (Auto) 0.6 Neut # 4.0 Lymph # 2.4 Love # 0.8 Eos # 0.3 Baso # 0.0 Retic Count 1.6 H PT 12.5 H INR 1.1 APTT 25 Puncture Site Rr pCO2 38 pO2 89 HCO3 26.2 ABG pH 7.44 ABG Total CO2 27.0 ABG O2 Saturation 97.1 ABG Base Excess 1.6 ABG Hemoglobin 8.7 L ABG Carboxyhemoglobin 0.9 POC ABG HHb (Measured) 2.9 ABG Methemoglobin 0.3 Juan Test Pos A-a O2 Difference 56.0 Respiratory Index 0.6 Hgb O2 Saturation 95.9 Liter Flow 2.0 FiO2 27.0 Sodium 141 Potassium 3.4 L Chloride 99 Carbon Dioxide 28 Anion Gap 17 BUN 10 Creatinine 1.0 Est GFR ( Amer) > 60 Est GFR (Non-Af Amer) > 60 Random Glucose 81 Hemoglobin A1c 5.7 Calcium 7.9 L Phosphorus 3.9 Magnesium 2.3 Iron 37 L TIBC 443 % Saturation 8 L Ferritin 6.2 Total Bilirubin 1.4 H AST 24 ALT 23 Alkaline Phosphatase 72 Lactate Dehydrogenase 497 Total Protein 7.2 Albumin 4.0 Globulin 3.3 Albumin/Globulin Ratio 1.2 Triglycerides 141 Cholesterol 148 LDL Cholesterol Direct 93 HDL Cholesterol 25 L Vitamin B12 257 Folate 19.4 Homocysteine 10.5 Free T4 1.05 TSH 3rd Generation 3.89 Critical Care Progress Note - Nutrition Nutrition: Nutrition Category Date Time Status low fat [Heart Healthy Diet] [DIET] Diets 02/07/17 Lunch Active Attending/Attestation - Attestation I have personally seen and examined this patient.: Yes I have fully participated in the care of the patient.: Yes I have reviewed all pertinent clinical information: Yes Notes (Text): 02/07/17 17:15 patient seen and examined in the intensive care unit. Case discussed with house Staff in the morning rounds Status post IVC filter for DVT and pulmonary embolism No active bleeding status post transfusion of packed RBCs and seen by gastroenterology Monitor H&H and transfuse if necessary Stable in no respiratory distresswith saturation 100% on 2 L, no right-sided strain on echocardiogram, no tachycardia and normotensive.
[2017-02-07 07:44] LABS: FOLATE 19.4 ng/mL
[2017-02-07] MEDS ORDERED: Potassium Chloride 20 mEq/15 ml LIQ UD PO ONE (07:45)
[2017-02-07 07:57] LABS: INR 1.1
[2017-02-07] MEDS ORDERED: Potassium Chloride 20 mEq 100 ML IVPB SCH (09:00)
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
--- NOTE | 2017-02-07 09:33 | CP.PCM.CON ---
<Xavi Perez - Last Filed: 02/07/17 10:00> History of Present Illness - History of Present Illness History of Present Illness: PGY4 GI Fellow Consult Note Patient is a 51yo male with PMHx significant for diverticulitis, internal hemorrhoids who presented to the ED with chronic cough and fatigue. One month ago patient developed sudden onset of cough and chest congestion. He tried using Mucinex over the counter but had minimal improvement in symptoms. He admits that he began to buy multiple boxes of mucinex before he realized that symptoms had persisted for multiple weeks. Over the past week he began a new job and noted worsening exertional dyspnea and generalized fatigue. As cough continued and he began to develop chest pain with coughing, he came to the ED for further evaluation. It was here that he was diagnosed with profound anemia ( HGB of 4.9), B/L pulmonary embolism and LLE DVT. He has no history of blood clots, denies any recent injuries or prolonged trips. He also denies any hemoptysis, hematochezia, hematuria, melena, hematemesis. He is s/p 4 units PRBC transfusion and admits to feeling less fatigued today. Continues to have cough and difficulty with deep inspiration. Of note, patient was seen by his PCP in 06/2016 and had full lab work done at that time which, to his knowledge, was unremarkable. PMHx: See HPI PSHx: Cholecystectomy (~15-20 years [employer]), Hemorrhoidectomy (2-3 yrs [employer]) FHx: Sister - LE DVT Social: Denies tobacco or illicit drug use, infrequent EtOH use Endo: Colonoscopy 3 years [employer] following episode of diverticulitis - diverticulosis and hemorrhoids noted Review of Systems - Constitutional Constitutional: Fatigue, Lethargy. absent: Chills, Fever - EENT Eyes: absent: Change in Vision Nose/Mouth/Throat: absent: Sore Throat - Cardiovascular Cardiovascular: Chest Pain, Dyspnea, Dyspnea on Exertion - Respiratory Respiratory: Cough, Dyspnea. absent: Excessive Mucous Production - Gastrointestinal Gastrointestinal: absent: Abdominal Pain, Constipation, Cramping, Diarrhea, Dyspepsia, Dysphagia, Hematemesis, Hematochezia, Melena, Nausea, Vomiting - Genitourinary Genitourinary: absent: Dysuria, Urinary Frequency, Urinary Urgency - Musculoskeletal Musculoskeletal: absent: Back Pain, Neck Pain - Integumentary Integumentary: absent: New Lesions, Rash - Neurological Neurological: absent: Dizziness, Numbness, Focal Weakness - Psychiatric Psychiatric: absent: Anxiety, Depression - Endocrine Endocrine: absent: Polydipsia, Polyphagia, Polyuria - Hematologic/Lymphatic Hematologic: absent: Easy Bleeding, Easy Bruising, Lymphadenopathy Past Patient History - Infectious Disease Hx of Infectious Diseases: None - Past Medical History & Family History Past Medical History?: No - Past Social History Smoking Status: Former Smoker Alcohol: Occasional Drugs: Cannabis - MUSCULOSKELETAL/RHEUMATOLOGICAL Hx Falls: No - PSYCHIATRIC Hx Substance Use: No - SURGICAL HISTORY Hx Cholecystectomy: Yes - ANESTHESIA Hx Anesthesia: Yes Hx Anesthesia Reactions: No Hx Malignant Hyperthermia: No Has any member of the family had a problem w/ anesthesia?: No Meds Allergies/Adverse Reactions: Allergies Allergy/AdvReac Type Severity Reaction Status Date / Time Penicillins Allergy Verified 02/06/17 10:36 - Medications Medications: Current Medications Potassium Chloride (Potassium Chloride 20 Meq/100 Ml) 100 mls @ 50 mls/hr IVPB Q2H [facility] Stop: 02/07/17 12:59 Last Admin: 02/07/17 08:52 Dose: 50 mls/hr Pantoprazole Sodium (Protonix Inj) 40 mg IVP DAILY [facility] Last Admin: 02/07/17 09:06 Dose: 40 mg Physical Exam - Constitutional Appears: Non-toxic, No Acute Distress - Eye Exam Eye Exam: EOMI, PERRL - ENT Exam ENT Exam: Mucous Membranes Moist - Respiratory Exam Respiratory Exam: Clear to Auscultation Bilateral. absent: Rales, Rhonchi, Wheezes - Cardiovascular Exam Cardiovascular Exam: RRR, +S1, +S2 - GI/Abdominal Exam GI & Abdominal Exam: Normal Bowel Sounds, Soft. absent: Distended, Firm, Guarding, Rigid, Tenderness - Rectal Exam Rectal Exam: NORMAL INSPECTION. absent: Black Stool, Bloody Stool Additional comments: brown stool on exam - Extremities Exam Extremities exam: Positive for: pedal edema Additional comments: 1+ LE edema B/L - Neurological Exam Neurological exam: Alert, Oriented x3 - Psychiatric Exam Psychiatric exam: Normal Affect, Normal Mood - Skin Skin Exam: Dry, Warm Results - Vital Signs Recent Vital Signs: Last Vital Signs Temp 97.8 F 02/07/17 08:00 Pulse 71 02/07/17 08:06 Resp 18 02/07/17 08:06 BP 130/82 02/07/17 08:06 Pulse Ox 98 02/07/17 08:06 - Labs Result Diagrams: 02/07/17 06:21 02/07/17 06:17 Labs: Laboratory Results - last 24 hr 02/07/17 02/07/17 06:17 06:21 WBC 7.6 RBC 4.20 L Hgb 9.0 L D Hct 28.9 L MCV 68.7 L D MCH 21.3 L MCHC 31.1 L RDW 28.4 H Plt Count 474 H MPV 8.3 Neut % (Auto) 52.6 Lymph % (Auto) 31.9 Carter % (Auto) 10.5 H Eos % (Auto) 4.4 H Baso % (Auto) 0.6 Neut # 4.0 Lymph # 2.4 Carter # 0.8 Eos # 0.3 Baso # 0.0 Retic Count 1.6 H PT 12.5 H INR 1.1 APTT 25 Sodium 141 Potassium 3.4 L Chloride 99 Carbon Dioxide 28 Anion Gap 17 BUN 10 Creatinine 1.0 Est GFR ( Amer) > 60 Est GFR (Non-Af Amer) > 60 Random Glucose 81 Calcium 7.9 L Phosphorus 3.9 Magnesium 2.3 Iron 37 L TIBC 443 % Saturation 8 L Ferritin 6.2 Total Bilirubin 1.4 H AST 24 ALT 23 Alkaline Phosphatase 72 Lactate Dehydrogenase 497 Total Protein 7.2 Albumin 4.0 Globulin 3.3 Albumin/Globulin Ratio 1.2 Triglycerides 141 Cholesterol 148 LDL Cholesterol Direct 93 HDL Cholesterol 25 L Vitamin B12 257 Folate 19.4 Homocysteine 10.5 Free T4 1.05 TSH 3rd Generation 3.89 Assessment & Plan - Assessment and Plan (Free Text) Assessment: Patient is a 51yo male with PMHx significant for diverticulitis, internal hemorrhoids who presented to the ED with chronic cough and fatigue for one month -B/L unprovoked pulmonary embolism -L LE DVT -Iron deficiency anemia -H/O Diverticulosis/itis Plan: -Unexplained iron deficiency anemia; no overt bleeding noted, hemodynamically stable -Patient will ultimately benefit from EGD/Colonoscopy given profound anemia -Timing of endoscopy dependent on placement of IVC filter and pulmonary status, ability to tolerate procedure/anesthesia -S/P 4 units PRBC -Change protonix to 40mg PO QAMAC -Would benefit from hypercoagulability work up exclusing protein C&S deficiency in setting of acute clot, especially given younger sister with DVT - Date & Time Date: 02/07/17 Time: 06:45 <Vito Shepherd - Last Filed: 02/07/17 10:20> Meds - Medications Medications: Current Medications Potassium Chloride (Potassium Chloride 10 Meq/100 Ml) 100 mls @ 100 mls/hr IVPB ONCE ONE Stop: 02/07/17 11:59 Pantoprazole Sodium (Protonix Inj) 40 mg IVP DAILY [facility] Last Admin: 02/07/17 09:06 Dose: 40 mg Results - Vital Signs Recent Vital Signs: Last Vital Signs Temp 97.8 F 02/07/17 08:00 Pulse 65 02/07/17 10:00 Resp 15 02/07/17 10:00 BP 141/95 H 02/07/17 09:57 Pulse Ox 98 02/07/17 10:00 - Labs Result Diagrams: 02/07/17 06:21 02/07/17 06:17 Labs: Laboratory Results - last 24 hr 02/07/17 02/07/17 02/07/17 06:17 06:21 09:54 WBC 7.6 RBC 4.20 L Hgb 9.0 L D Hct 28.9 L MCV 68.7 L D MCH 21.3 L MCHC 31.1 L RDW 28.4 H Plt Count 474 H MPV 8.3 Neut % (Auto) 52.6 Lymph % (Auto) 31.9 Carter % (Auto) 10.5 H Eos % (Auto) 4.4 H Baso % (Auto) 0.6 Neut # 4.0 Lymph # 2.4 Carter # 0.8 Eos # 0.3 Baso # 0.0 Retic Count 1.6 H PT 12.5 H INR 1.1 APTT 25 Puncture Site Rr pCO2 38 pO2 89 HCO3 26.2 ABG pH 7.44 ABG Total CO2 27.0 ABG O2 Saturation 97.1 ABG Base Excess 1.6 ABG Hemoglobin 8.7 L ABG Carboxyhemoglobin 0.9 POC ABG HHb (Measured) 2.9 ABG Methemoglobin 0.3 Juan Test Pos A-a O2 Difference 56.0 Respiratory Index 0.6 Hgb O2 Saturation 95.9 Liter Flow 2.0 FiO2 27.0 Sodium 141 Potassium 3.4 L Chloride 99 Carbon Dioxide 28 Anion Gap 17 BUN 10 Creatinine 1.0 Est GFR ( Amer) > 60 Est GFR (Non-Af Amer) > 60 Random Glucose 81 Hemoglobin A1c 5.7 Calcium 7.9 L Phosphorus 3.9 Magnesium 2.3 Iron 37 L TIBC 443 % Saturation 8 L Ferritin 6.2 Total Bilirubin 1.4 H AST 24 ALT 23 Alkaline Phosphatase 72 Lactate Dehydrogenase 497 Total Protein 7.2 Albumin 4.0 Globulin 3.3 Albumin/Globulin Ratio 1.2 Triglycerides 141 Cholesterol 148 LDL Cholesterol Direct 93 HDL Cholesterol 25 L Vitamin B12 257 Folate 19.4 Homocysteine 10.5 Free T4 1.05 TSH 3rd Generation 3.89 Attending/Attestation - Attestation I have personally seen and examined this patient.: Yes I have fully participated in the care of the patient.: Yes I have reviewed all pertinent clinical information: Yes Notes (Text): Patient seen and examined with GI fellow. Agree with his note as documented above with the following additions/exceptions. This is a 51 year old male with h/o diverticulitis, hemorrhoids who is admitted to hospital with 1 mo history of cough/weakness/fatigue. He is found to have DVT/bilateral PE and profound iron deficiency anemia (Hb 4.9) with FOBT positive stool. He denies any overt GI blood loss. His last colonoscopy was 3 years ago, reportedly showing hemorrhoids and diverticulosis. He has never had upper endoscopy previously. He denies any chronic GI complaints of abdominal pain, nausea or vomiting. No unintentional weight loss. No melena/hematochezia/rectal bleeding. He is s/p PRBC transfusion with improvement in hemoglobin. He is planned for IVC filter placement today. He had TTE done which is pending. He would ultimately benefit from endoscopic evaluation, once medically cleared for anesthesia given new PE. Would continue to monitor H/H, transfuse as needed. Monitor for overt GI blood loss. Will continue to follow and make recommendations pending clinical course. 02/07/17 10:14
[2017-02-07 09:59] LABS: ABG ALLEN TEST POS; ARTERIAL BLOOD HGB O2 SAT 95.9 % (95.0-98.0); CARBOXYHEMOGLOBIN 0.9 % (0.5-1.5); DRAW SITE RR; HHB 2.9 % (0.0-5.0); METHEMOGLOBIN 0.3 % (0.0-3.0)
[2017-02-07] MEDS ORDERED: Potassium Chloride 10 mEq 100 ML IVPB ONE (11:00)
[2017-02-07] MEDS ORDERED: Lidocaine 2% Inj (20ml) ONE (12:49)
[2017-02-07] MEDS ORDERED: Iodixanol 320 MG/ML 200 ML BOTTLE IV ONE (12:50)
[2017-02-07] MEDS ORDERED: Iodixanol 320 MG/ML 100 ML BOTTLE IV ONE (12:50)
--- NOTE | 2017-02-07 13:24 | CARD ---
APPROVED REPORT EXAM: Two-dimensional and M-mode echocardiogram with Doppler and color Doppler. Other Information Technically limited study due to body habitus. INDICATION Dizziness and Vertigo Dyspnea Pulmonary Embolism RISK FACTORS Obesity M-Mode DIMENSIONS RVDd1.70 (2.1-3.2cm)Left Atrium (MM)2.58 (2.5-4.0cm) IVSd0.89 (0.7-1.1cm)Aortic Root3.91 (2.2-3.7cm) LVDd5.05 (4.0-5.6cm)Aortic Cusp Exc.2.18 (1.5-2.0cm) PWd0.96 (0.7-1.1cm)FS (%) 45 % LVDs2.77 (2.0-3.8cm)LVEF (%)76 (>50%) Mitral Valve MV E Pxkafuba40.5cm/sMV A Apdydiwc37.1cm/sE/A ratio1.0 TDI E/Lateral E'0.0E/Medial E'0.0 Tricuspid Valve TR Peak [id number]/sTR Peak Gr.[id number] LEFT VENTRICLE The left ventricle is normal size. There is normal left ventricular wall thickness. Left ventricle systolic function is normal. The Ejection Fraction is >70%. There is normal LV segmental wall motion. The left ventricular diastolic function is normal. RIGHT VENTRICLE The right ventricle is normal size. There is normal right ventricular wall thickness. The right ventricular systolic function is normal. ATRIA The left atrium size is normal. The right atrium size is normal. The interatrial septum is intact with no evidence for an atrial septal defect. AORTIC VALVE The aortic valve is normal in structure. No aortic regurgitation is present. There is no aortic valvular stenosis. There is no aortic valvular vegetation. MITRAL VALVE The mitral valve is normal in structure. There is no evidence of mitral valve prolapse. There is no mitral valve stenosis. There is no mitral valve regurgitation noted. TRICUSPID VALVE The tricuspid valve is normal in structure. There is trace tricuspid regurgitation. Right ventricular systolic pressure is estimated at less than 30 mmHg. There is no pulmonary hypertension. PULMONIC VALVE The pulmonic valve is not well visualized. There is no pulmonic valvular regurgitation. GREAT VESSELS The aortic root is normal in size. PERICARDIAL EFFUSION There is no significant pericardial effusion. <Conclusion> Left ventricle systolic function is normal. The Ejection Fraction is >70%. No aortic regurgitation is present. There is no mitral valve regurgitation noted. There is trace tricuspid regurgitation. There is no pulmonary hypertension. There is no pulmonic valvular regurgitation.
--- NOTE | 2017-02-07 13:36 | PCM.SURG1 ---
Surgeon's Initial Post Op Note - Surgeon's Notes Surgeon: Kamaljit Cai MD Health Practice Manager: NONE Type of Anesthesia: Local Pre-Operative Diagnosis: DVT, PE, GI BLEED Operative Findings: Patent right femoral vein. Normal IVC. Inflow of renal veins noted. Post-Operative Diagnosis: DVT, PE, GI BLEED Operation Performed: Retrievable IVC filter placement in the infrarenal IVC. Specimen/Specimens Removed: none Estimated Blood Loss: EBL {In ML}: 2 Blood Products Given: N/A Drains Used: No Drains Post-Op Condition: Fair Date of Surgery/Procedure: 02/07/17 Time of Surgery/Procedure: 13:30
--- NOTE | 2017-02-07 14:11 | VASCLAB ---
PROCEDURE: Lower Extremity Venous Duplex Exam. HISTORY: b/l PE PRIORS: None. TECHNIQUE: Bilateral common femoral, femoral, popliteal and posterior tibial, peroneal and great saphenous veins were evaluated. Flow was assessed with color Doppler, compressibility, assessment of phasic flow and augmentation response. Report prepared by Jovani Gamboa, BS, RVT FINDINGS: RIGHT: 1. Common Femoral Vein: 1.1. Compressibility - Fully compressible: Thrombus - None : Flow - Phasic: Augmentation -Normal: Reflux - None. 2. Femoral Vein: 2.1. Compressibility - Fully compressible: Thrombus - None : Flow - Phasic: Augmentation -Normal: Reflux - None. 3. Popliteal Vein: 3.1. Compressibility - Fully compressible: Thrombus - None : Flow - Phasic: Augmentation -Normal: Reflux - None. 4. Posterior Tibial Vein: 4.1. Compressibility - Fully compressible: Thrombus - None: Flow - Phasic: Augmentation -Normal: Reflux - None. 5. Peroneal Vein: 5.1. Compressibility - Fully compressible: Thrombus - None: Flow - Phasic: Augmentation -Normal: Reflux - None. 6. Great Saphenous Vein: 6.1. Compressibility - Fully compressible: Thrombus - None: Flow - Phasic: Augmentation - Normal: Reflux - None. LEFT: 1. Common Femoral Vein: 1.1. Compressibility - Fully compressible: Thrombus - None: Flow - Phasic: Augmentation -Normal: Reflux - None. 2. Femoral Vein: 2.1. Compressibility - Fully compressible: Thrombus - None: Flow - Phasic: Augmentation -Normal: Reflux - None. 3. Popliteal Vein: 3.1. Compressibility - Fully compressible: Thrombus - None : Flow - Phasic: Augmentation -Normal: Reflux - None. 4. Posterior Tibial Vein: 4.1. Compressibility - Partial: Thrombus - Acute: Flow - Reduced : Augmentation -None: Reflux - None. 5. Peroneal Vein: 5.1. Compressibility - Fully compressible: Thrombus - None: Flow - Phasic: Augmentation -Normal: Reflux - None. 6. Great Saphenous Vein: 6.1. Compressibility - Fully compressible: Thrombus - None: Flow - Phasic: Augmentation - Normal: Reflux - Severe. OTHER FINDINGS: CHARLIE Reyes notified about the findings. Left: Severe valvular incompetence of the left greater saphenous vein. IMPRESSION: Right: No evidence of deep or superficial vein thrombosis of the right lower extremity. Normal valve function noted of the right side. Left: Acute thrombosis of the left posterior tibial vein with severe reduction of the venous return.
--- NOTE | 2017-02-07 14:15 | SPECPROC ---
PROCEDURE: Date of procedure: 02/07/5207 Procedure: Inferior vena cava filter insertion, CPT 44822 Medications: 6 cc 1% lidocaine HISTORY: Pulmonary embolism, DVT, GI bleed unable to anticoagulate TECHNIQUE: Following informed consent and procedure time-out, the patient is placed supine on the interventional table. Patient right groin was prepped and draped in the usual sterile fashion. Ultrasound showed a compressible and patent right common femoral vein. After skin was anesthetized with 1% lidocaine, the femoral vein was accessed with micropuncture technique. The introducer sheath of an IVC filter was advanced over wire and positioned within the inferior vena cava and an inferior vena cavagram was performed. A Cobra glide catheter was advanced through a 7 Telugu vascular sheath in the right and left renal veins were catheterized. Right and left renal venogram was performed. The inferior vena cava is normal without evidence of thrombus. The inflow of the right and left renal veins were noted. There is no venous anomalies. A retrievable filter was then placed within the infrarenal IVC. Following IVC filter placement, the sheath was removed and pressure was applied to Pt's right groin until hemostasis was achieved. A dressing was applied. IMPRESSION: Placement of retrievable filter within the infrarenal IVC.
--- NOTE | 2017-02-07 16:55 | CARD ---
APPROVED REPORT EKG Measurement Heart [id number] <Conclusion> Normal sinus rhythm Normal ECG
[2017-02-08 06:08] LABS: BASO % 0.5 % (0.0-2.0); EOS # 0.3 K/uL (0.0-0.7); HEMATOCRIT 30.5 % (35.0-51.0); LYMPH # 2.4 K/uL (1.0-4.3); LYMPH % 29.7 % (20.0-40.0); MEAN CELL VOLUME 69.1 fL (80.0-94.0); MEAN CORPUSCULAR HEMOGLOBIN 21.2 pg (27.0-31.0); MEAN CORPUSCULAR HGB CONC 30.7 g/dL (33.0-37.0); MEAN PLATELET VOLUME 7.9 fL (7.2-11.7); MONO # 0.9 K/uL (0.0-0.8); MONO % 10.8 % (0.0-10.0); NRBC % 0.1 % (0.0-2.0); RED CELL DISTRIBUTION WIDTH 29.1 % (11.5-14.5)
[2017-02-08 06:24] LABS: CHLORIDE 103 mmol/L (98-107); POTASSIUM 3.7 mmol/L (3.6-5.2); SODIUM 141 mmol/L (132-148)
[2017-02-08 06:26] LABS: ALB/GLOB RATIO 1.2 (1.0-2.1); ALKALINE PHOSPHATASE 73 U/L (38-126); ALT/SGPT 21 U/L (21-72); AST/SGOT 19 U/L (17-59); BILIRUBIN,TOTAL 1.3 mg/dL (0.2-1.3); BLOOD UREA NITROGEN 14 mg/dL (9-20); CARBON DIOXIDE 25 mmol/L (22-30); GFR AFRICAN-AMERICAN > 60; GLUCOSE,RANDOM 82 mg/dL (75-110); TOTAL PROTEIN 7.2 g/dL (6.3-8.3)
[2017-02-08 06:27] LABS: CALCIUM 7.8 mg/dl (8.6-10.4); MAGNESIUM 2.5 mg/dL (1.6-2.3); PHOSPHOROUS 4.2 mg/dL (2.5-4.5)
--- NOTE | 2017-02-08 06:51 | CP.PCM.PN ---
<Xavi Perez - Last Filed: 02/08/17 07:55> Subjective - Date & Time of Evaluation Date of Evaluation: 02/08/17 Time of Evaluation: 06:35 - Subjective Subjective: PGY4 GI Fellow Progress Note Patient seen and examined bedside this morning. The patient denies any complaint at this time. There is no evidence of overt GI bleeding. Passing normal brown stool. Denies any abdominal pain, nausea, vomiting, chest pain, SOB. Does have persistent cough. 12 system ROS performed and negative except where stated. Objective - Vital Signs/Intake and Output Vital Signs (last 24 hours): Temp Pulse Resp BP Pulse Ox 97.5 F L 64 12 127/90 100 02/08/17 04:00 02/08/17 06:00 02/08/17 06:00 02/08/17 05:58 02/08/17 06:00 Intake and Output: 02/07/17 02/08/17 18:59 06:59 Intake Total 500 800 Output Total 1490 900 Balance -990 -100 - Medications Medications: Current Medications Pantoprazole Sodium (Protonix Ec Tab) 40 mg PO DAILY [facility] - Labs Labs: 02/08/17 05:54 02/08/17 05:54 PT 12.5 SECONDS (9.7-12.2) H 02/07/17 06:21 INR 1.1 02/07/17 06:21 APTT 25 SECONDS (21-34) 02/07/17 06:21 - Constitutional Appears: Non-toxic, No Acute Distress - Eye Exam Eye Exam: EOMI, PERRL - ENT Exam ENT Exam: Mucous Membranes Moist - Respiratory Exam Respiratory Exam: Clear to Ausculation Bilateral. absent: Rales, Rhonchi, Wheezes - Cardiovascular Exam Cardiovascular Exam: RRR, +S1, +S2 - GI/Abdominal Exam GI & Abdominal Exam: Soft, Normal Bowel Sounds. absent: Distended, Firm, Guarding, Rigid, Tenderness, Organomegaly - Extremities Exam Extremities Exam: Normal Inspection. absent: Pedal Edema - Neurological Exam Neurological Exam: Alert, Awake, Oriented x3 - Psychiatric Exam Psychiatric exam: Normal Affect, Normal Mood - Skin Skin Exam: Dry, Warm Assessment and Plan - Assessment and Plan (Free Text) Assessment: Patient is a 51yo male with PMHx significant for diverticulitis, internal hemorrhoids who presented to the ED with chronic cough and fatigue for one month -B/L unprovoked pulmonary embolism -L LE DVT -Iron deficiency anemia -H/O Diverticulosis/itis Plan: -Still no overt bleeding noted -H/H stable, unchanged following transfusion, hemodynamically stable -S/P IVC filter placement -Patient will ultimately benefit from EGD/Colonoscopy given anemia however, would defer for now in the setting of acute B/L PE and LLE DVT; suggest outpatient follow up and evaluation for procedure at that time -Would recommend initiation of anticoagulation at this time, monitor for any further acute blood loss -Continue Protonix 40mg PO QAMAC -Hypercoag. work up in progress <Johnny Cha - Last Filed: 02/08/17 09:54> Objective - Vital Signs/Intake and Output Vital Signs (last 24 hours): Temp Pulse Resp BP Pulse Ox 97.5 F L 66 10 L 128/84 100 02/08/17 04:00 02/08/17 07:00 02/08/17 07:00 02/08/17 06:57 02/08/17 07:00 Intake and Output: 02/08/17 02/08/17 06:59 18:59 Intake Total 800 100 Output Total 900 Balance -100 100 - Medications Medications: Current Medications Pantoprazole Sodium (Protonix Ec Tab) 40 mg PO DAILY [facility] - Labs Labs: 02/08/17 05:54 02/08/17 05:54 PT 12.5 SECONDS (9.7-12.2) H 02/07/17 06:21 INR 1.1 02/07/17 06:21 APTT 25 SECONDS (21-34) 02/07/17 06:21 Attending/Attestation - Attestation I have personally seen and examined this patient.: Yes I have fully participated in the care of the patient.: Yes I have reviewed all pertinent clinical information, including history, physical exam and plan: Yes Notes (Text): 02/08/17 09:51 I have seen and examined patient with GI fellow. No acute events overnight, he is seen resting in bed comfortably. He denies abdominal pain, nausea, vomiting , diarrhea, melena, or hematochezia. Tolerating PO liquids without difficulty. Review of vitals from today are normal. Obesity Iron deficiency anemia Acute b/l pulmonary embolism, s/p IVC filter placement - Advance diet as tolerated - H/H stable, continue to monitor, no overt GI bleeding noted - Continue with PPI therapy - Currently no planned GI intervention given acute PE, there is higher associated risk with endoscopic procedure. Patient hemodynamically stable with likely chronic source of bleeding, would certainly benefit from EGD/colonoscopy evaluation following medical optimization. - Plan for anti-coagulation as per medical team - Follow up hypercoaguable workup
[2017-02-08] MEDS: Pantoprazole 40 mg EC Tab PO SCH (10:08)
[2017-02-08] MEDS ORDERED: Heparin25000 units/250ml 1/2NS 250 ML IV PRN ×2 (12:02→12:28)
--- NOTE | 2017-02-08 14:14 | CP.PCM.PN ---
Subjective - Date & Time of Evaluation Date of Evaluation: 02/08/17 Time of Evaluation: 13:40 - Subjective Subjective: Patient was seen and examined. He is in the ICU with pulmonary embolus, severe anemia, deep vein thrombosis, positive stool occult blood. I saw the patient in the ER, and the next day my colleague was helping me and saw the patient. I am seeing patient again today. Since then he has had multiple PRBCs and the Hgb has come up to 9.3 His blood pressure and HR have been stable. He is S/P IVC filter placement. He has also been evaluated by GI and at this moment is not safe to do an EGD or Colonscopy due to the large PE. However at some point GI has said he does need an EGD and colonoscopy. Now that his Hgb has increased to 9.3, he is today started on a heparin ggt. Hopefully the Hgb will be ok Patient denied chest pain, denied shortness of breath, and headache, and denied abdominal pain. He reports he still has + coughing sensation. Denied blood in stool. Objective - Vital Signs/Intake and Output Vital Signs (last 24 hours): Temp Pulse Resp BP Pulse Ox 97.5 F L 66 10 L 128/84 100 02/08/17 04:00 02/08/17 07:00 02/08/17 07:00 02/08/17 06:57 02/08/17 07:00 Intake and Output: 02/08/17 02/08/17 06:59 18:59 Intake Total 800 100 Output Total 900 Balance -100 100 - Medications Medications: Current Medications Heparin Sodium/Sodium Chloride (Heparin 76930 Units/250ml 1/2 Normal Saline) 250 mls @ 20.575 mls/hr IV .[id number] PRN; Protocol; 18 UNITS/KG/HR PRN Reason: PROTOCOL Last Admin: 02/08/17 13:54 Dose: 20.575 mls/hr Pantoprazole Sodium (Protonix Ec Tab) 40 mg PO DAILY MANUEL Last Admin: 02/08/17 10:08 Dose: 40 mg - Labs Labs: 02/08/17 05:54 02/08/17 05:54 PT 12.5 SECONDS (9.7-12.2) H 02/07/17 06:21 INR 1.1 02/07/17 06:21 APTT 25 SECONDS (21-34) 02/07/17 06:21 - Constitutional Appears: Well, No Acute Distress - Head Exam Head Exam: NORMAL INSPECTION - Eye Exam Eye Exam: EOMI, Normal appearance - ENT Exam ENT Exam: Mucous Membranes Moist - Respiratory Exam Respiratory Exam: Clear to Ausculation Bilateral, NORMAL BREATHING PATTERN - Cardiovascular Exam Cardiovascular Exam: REGULAR RHYTHM - GI/Abdominal Exam GI & Abdominal Exam: Soft, Normal Bowel Sounds. absent: Rigid, Tenderness - Neurological Exam Neurological Exam: Alert, Awake, Oriented x3 Neuro motor strength exam: Left Upper Extremity: 5, Right Upper Extremity: 5 - Psychiatric Exam Psychiatric exam: Normal Affect, Normal Mood - Skin Skin Exam: Normal Color, Warm Additional comments: He does not look as pale as before Assessment and Plan - Assessment and Plan (Free Text) Assessment: (1) Pulmonary embolism Assessment & Plan: 02/08: Patient's Hgb is now 9.3 with transfusion, now started on heparin ggt. Hopefully his Hgb will remains stable. He also is S/P IVC filter placement yesterday. Ct Chest (02/06/17): bilateral pulmonary emboli, 7mm hyperdense nodule, moderate to large hiatal hernies, cholecystecomy clips Patient unable to anticoagulated at this time given positive stool occult blood and severe anemia on admission Heme-onc consult (Dr. Pasha Gallagher)--> help appreciated hypercoaguability workup in progress (antithrombin 3, favtor 5 leiden, protein c , protein s, prothrombin, von willibrand, antiphospholipid syndrome) Prelim read of LLE venous dopplers: negative; awaiting official read Cardiology (Dr. Avendaño) on board-->help appreciated (2) GI bleed Assessment & Plan: 02/08: Now Hgb is 9.3, GI has indicated that cannot do EGD and colonscopy now due to concerns of the large PE - however that at some point he does need an EGD and colonscopy to look into the anemia he had comming in. hgb on admission: 4.9 MVC below 70 Patient received 4 units of PRBC follow-up hgb: 9.0; MCV improving low iron, normal TIBC, low iron saturation; low-normal ferritin; positive stool occult blood; elevated reticulocyte count Patient reports prior colonoscopy in 2008, reports internal hemorrhoids; diverticulosis Protonix 40mg IV q daily (3) Symptomatic anemia Assessment & Plan: 02/08: Better, now that he has had several PRBCs hgb on admission: 4.9 MVC below 70 Patient received 4 units of PRBC follow-up hgb: 9.0; MCV improving low iron, normal TIBC, low iron saturation; low-normal ferritin; positive stool occult blood; elevated reticulocyte count Patient reports prior colonoscopy in 2008, reports internal hemorrhoids; diverticulosis Status: Acute (4) Positive occult stool blood test Assessment & Plan: Positive stool occult blood on 02/06/17 Patient has had a prior colonoscopy in 2008-->will try to retrieve report GI (Dr. Shepherd) on board-->help appreciated Hgb improved after recieving blood transfusion Status: Acute (5) Hiatal hernia Assessment & Plan: Ct Chest (02/06/17): bilateral pulmonary emboli, 7mm hyperdense nodule, moderate to large hiatal hernies, cholecystecomy clips Status: Chronic (6) Hypokalemia Assessment & Plan: replete Status: Acute (7) Prophylactic measure Assessment & Plan: DVT ppx: unable to anticoagulate secondary to severe anemia (r/o GI bleed) GI ppx: protonic 40mg IV qdaily Status: Acute
--- NOTE | 2017-02-08 16:39 | CP.CCUPN ---
<Sydni Hilario - Last Filed: 02/08/17 16:35> CCU Subjective - Physician Review Subjective (Free Text): 02/07/17 16:22 Pt seen and examined earlier in no acute distress. Patient states that he has a cough with associated deep breathing intermittently. Patient for IVC filter placement today. Otherwise, no other acute complaints. He denies subjective fevers, chills, nausea, vomiting, diarrhea, chest pain, palpitations or headaches at this time. 02/08/17 16:35 Pt seen and examined in no acute distress. Patient states that he feels fine. Patient remains hemodynamically stable s/p day 1 IVC filter placement. Patient still admits to cough. Pt clarified that when he initially stated that he was sedentary, he only meant that he kept to himself and walked about in his house. He denied laying in bed or on the sofa endlessly. It was explained that it is unclear what factor triggered the thrombus/ emboli however it will be investigated. He denies chest pain, abdominal pain, fevers, chills, palpitations , dyspnea at this time. CCU Objective - Vital Signs / Intake & Output Vital Signs (Last 4 hours): Vital Signs Pulse Resp BP Pulse Ox 02/08/17 14:00 76 12 98 02/08/17 13:57 78 11 L 131/77 99 02/08/17 13:00 76 12 99 02/08/17 12:58 78 14 132/81 99 Intake and Output (Last 8hrs): Intake & Output 02/08/17 02/08/17 02/08/17 06:59 14:59 22:59 Intake Total 400 600.5 Output Total 600 350 Balance -200 250.5 Weight 252 lb Intake: Intake, IV Amount 20.5 Right Antecubital 20.5 Oral 400 580 Output: Urine 200 350 Urine, Voided 200 350 Stool 400 0 Other: # Bowel Movements 1 - Physical Exam Head: Positive for: Atraumatic, Normocephalic Pupils: Positive for: PERRL Extroacular Muscles: Positive for: EOMI Conjunctiva: Positive for: Normal Mouth: Positive for: Moist Mucous Membranes Neck: Positive for: Normal Range of Motion Respiratory/Chest: Positive for: Good Air Exchange. Negative for: Respiratory Distress, Wheezes Cardiovascular: Positive for: Normal S1, S2 Abdomen: Positive for: Normal Bowel Sounds. Negative for: Tenderness Back: Positive for: Normal Inspection Upper Extremity: Positive for: Normal Inspection Lower Extremity: Positive for: Normal Inspection Neurological: Positive for: CN II-XII Intact Skin: Positive for: Warm, Dry, Normal Color Psychiatric: Positive for: Alert, Oriented x 3 - Medications Active Medications: Active Medications Generic Name Dose Route Start Last Admin Trade Name Freq PRN Reason Stop Dose Admin Heparin Sodium/Sodium Chloride 250 mls @ 20.575 mls/hr 02/08/17 12:28 02/08/17 13:54 Heparin 83100 Units/250ml 1/2 Normal Saline IV 20.575 mls/hr .[id number] PRN Administration PROTOCOL Protocol 18 UNITS/KG/HR Pantoprazole Sodium 40 mg 02/08/17 10:00 02/08/17 10:08 Protonix Ec Tab PO 40 mg DAILY [facility] Administration - Patient Studies Lab Studies: Microbiology Studies 02/06/17 18:14 MRSA Culture (Admit) - Final Naris MRSA NOT DETECTED Lab Studies 02/08/17 02/08/17 Range/Units 14:30 05:54 WBC 8.0 (4.8-10.8) K/uL RBC 4.41 (4.40-5.90) Mil/uL Hgb 9.3 L (12.0-18.0) g/dL Hct 30.5 L (35.0-51.0) % MCV 69.1 L (80.0-94.0) fL MCH 21.2 L (27.0-31.0) pg MCHC 30.7 L (33.0-37.0) g/dL RDW 29.1 H (11.5-14.5) % Plt Count 390 (130-400) K/uL MPV 7.9 (7.2-11.7) fL Neut % (Auto) 55.0 (50.0-75.0) % Lymph % (Auto) 29.7 (20.0-40.0) % [place] % (Auto) 10.8 H (0.0-10.0) % Eos % (Auto) 4.0 (0.0-4.0) % Baso % (Auto) 0.5 (0.0-2.0) % Neut # 4.4 (1.8-7.0) K/uL Lymph # 2.4 (1.0-4.3) K/uL [place] # 0.9 H (0.0-0.8) K/uL Eos # 0.3 (0.0-0.7) K/uL Baso # 0.0 (0.0-0.2) K/uL APTT 27 (21-34) SECONDS Sodium 141 (132-148) mmol/L Potassium 3.7 (3.6-5.2) mmol/L Chloride 103 (98-107) mmol/L Carbon Dioxide 25 (22-30) mmol/L Anion Gap 16 (10-20) BUN 14 (9-20) mg/dL Creatinine 1.1 (0.8-1.5) MG/DL Est GFR ( Amer) > 60 Est GFR (Non-Af Amer) > 60 Random Glucose 82 (75-110) mg/dL Calcium 7.8 L (8.6-10.4) mg/dl Phosphorus 4.2 (2.5-4.5) mg/dL Magnesium 2.5 H (1.6-2.3) mg/dL Total Bilirubin 1.3 (0.2-1.3) mg/dL AST 19 (17-59) U/L ALT 21 (21-72) U/L Alkaline Phosphatase 73 (38-126) U/L Total Protein 7.2 (6.3-8.3) g/dL Albumin 3.9 (3.5-5.0) g/dL Globulin 3.3 (2.2-3.9) gm/dL Albumin/Globulin Ratio 1.2 (1.0-2.1) Laboratory Results - last 24 hr 02/08/17 02/08/17 05:54 14:30 WBC 8.0 RBC 4.41 Hgb 9.3 L Hct 30.5 L MCV 69.1 L MCH 21.2 L MCHC 30.7 L RDW 29.1 H Plt Count 390 MPV 7.9 Neut % (Auto) 55.0 Lymph % (Auto) 29.7 [place] % (Auto) 10.8 H Eos % (Auto) 4.0 Baso % (Auto) 0.5 Neut # 4.4 Lymph # 2.4 [place] # 0.9 H Eos # 0.3 Baso # 0.0 APTT 27 Sodium 141 Potassium 3.7 Chloride 103 Carbon Dioxide 25 Anion Gap 16 BUN 14 Creatinine 1.1 Est GFR ( Amer) > 60 Est GFR (Non-Af Amer) > 60 Random Glucose 82 Calcium 7.8 L Phosphorus 4.2 Magnesium 2.5 H Total Bilirubin 1.3 AST 19 ALT 21 Alkaline Phosphatase 73 Total Protein 7.2 Albumin 3.9 Globulin 3.3 Albumin/Globulin Ratio 1.2 Review of Systems - Review of Systems Review of Systems: see subjective Critical Care Progress Note - Nutrition Nutrition: Nutrition Category Date Time Status low fat [Heart Healthy Diet] [DIET] Diets 02/07/17 Lunch Active Assessment/Plan (1) Pulmonary embolism Current Visit: Yes Status: Acute (2) Anemia Current Visit: Yes Status: Acute (3) DVT (deep venous thrombosis) Current Visit: Yes Status: Acute (4) Positive occult stool blood test Current Visit: Yes Status: Acute (5) Prophylactic measure Current Visit: Yes Status: Acute - Assessment and Plan (Free Text) Assessment: 51 year old male with PMHx significant for internal hemorrhoids and diverticulitis presents with cough of four week duration associated with some dyspnea. Bilateral PE, hiatal hernia and low Hgb of 4.9 noted for which patient is currently being transfused. Patient admitted to ICU for critical care monitoring. Pt s/p day 1 IVC filter placement. Plan: Neuro: aaox3 in NAD Cardio: EKG- NSR ECHO- LVEF 76% Refer to report. Hemodynamically stable Dr. Johann Avendaño on the case Pulm: CTA: noted bilateral pulmonary embolism as well as hiatal hernia noted GI: Positive stool occult blood- Rule out GI bleed Will benefit from endoscopic management now stabilized. No emergent need to at this point; although will be optimal within the near future once therapy complete here. Endo: TSH 3.89; Free T4 1.05 WNL, HgbA1c 5.7 Maintain euglycemia Heme: Hgb stable at 9.3. Pt received 4 units 2 nights ago. Monitor for hemodynamic stability Hypercoagulability and Anemia workup Dr. Gallagher on the case Pt instructed that IVC filter should be removed in approx 6 months time. If patient toelrates heparin therapy without evidence of bleed, will be switched to oral anticoagulant agent. Patient to continue after discharge here. Patient should follow up with [facility] outpatient after discharge. Nephro: Monitor ins and outs Vasc: Venous dopplers: Positive DVT in LLE IVC filter placed 02/07/17 Prophylaxis: SCDs contraindicated in light of DVT Heparin drip- Monitor patient. If patient can tolerate, will begin anticoagulant agent before discharge. PPI daily Considerations for transfer following heparin therapy. Will monitor today. <Tono Nazario - Last Filed: 02/08/17 17:09> CCU Objective - Vital Signs / Intake & Output Vital Signs (Last 4 hours): Vital Signs Temp Pulse Resp BP Pulse Ox 02/08/17 16:00 97.8 F 70 18 131/82 99 02/08/17 14:00 76 12 98 02/08/17 13:57 78 11 L 131/77 99 Intake and Output (Last 8hrs): Intake & Output 02/08/17 02/08/17 02/08/17 06:59 14:59 22:59 Intake Total 400 600.5 61.5 Output Total 600 350 220 Balance -200 250.5 -158.5 Weight 252 lb Intake: Intake, IV Amount 20.5 61.5 Right Antecubital 20.5 61.5 Oral 400 580 0 Output: Urine 200 350 220 Urine, Voided 200 350 220 Stool 400 0 0 Other: # Bowel Movements 1 - Medications Active Medications: Active Medications Generic Name Dose Route Start Last Admin Trade Name Freq PRN Reason Stop Dose Admin Heparin Sodium/Sodium Chloride 250 mls @ 20.575 mls/hr 02/08/17 12:28 02/08/17 13:54 Heparin 24885 Units/250ml 1/2 Normal Saline IV 20.575 mls/hr .[id number] PRN Administration PROTOCOL Protocol 18 UNITS/KG/HR Pantoprazole Sodium 40 mg 02/08/17 10:00 02/08/17 10:08 Protonix Ec Tab PO 40 mg DAILY [facility]EL Administration - Patient Studies Lab Studies: Microbiology Studies 02/06/17 18:14 MRSA Culture (Admit) - Final Naris MRSA NOT DETECTED Lab Studies 02/08/17 02/08/17 Range/Units 14:30 05:54 WBC 8.0 (4.8-10.8) K/uL RBC 4.41 (4.40-5.90) Mil/uL Hgb 9.3 L (12.0-18.0) g/dL Hct 30.5 L (35.0-51.0) % MCV 69.1 L (80.0-94.0) fL MCH 21.2 L (27.0-31.0) pg MCHC 30.7 L (33.0-37.0) g/dL RDW 29.1 H (11.5-14.5) % Plt Count 390 (130-400) K/uL MPV 7.9 (7.2-11.7) fL Neut % (Auto) 55.0 (50.0-75.0) % Lymph % (Auto) 29.7 (20.0-40.0) % [place] % (Auto) 10.8 H (0.0-10.0) % Eos % (Auto) 4.0 (0.0-4.0) % Baso % (Auto) 0.5 (0.0-2.0) % Neut # 4.4 (1.8-7.0) K/uL Lymph # 2.4 (1.0-4.3) K/uL [place] # 0.9 H (0.0-0.8) K/uL Eos # 0.3 (0.0-0.7) K/uL Baso # 0.0 (0.0-0.2) K/uL APTT 27 (21-34) SECONDS Sodium 141 (132-148) mmol/L Potassium 3.7 (3.6-5.2) mmol/L Chloride 103 (98-107) mmol/L Carbon Dioxide 25 (22-30) mmol/L Anion Gap 16 (10-20) BUN 14 (9-20) mg/dL Creatinine 1.1 (0.8-1.5) MG/DL Est GFR ( Amer) > 60 Est GFR (Non-Af Amer) > 60 Random Glucose 82 (75-110) mg/dL Calcium 7.8 L (8.6-10.4) mg/dl Phosphorus 4.2 (2.5-4.5) mg/dL Magnesium 2.5 H (1.6-2.3) mg/dL Total Bilirubin 1.3 (0.2-1.3) mg/dL AST 19 (17-59) U/L ALT 21 (21-72) U/L Alkaline Phosphatase 73 (38-126) U/L Total Protein 7.2 (6.3-8.3) g/dL Albumin 3.9 (3.5-5.0) g/dL Globulin 3.3 (2.2-3.9) gm/dL Albumin/Globulin Ratio 1.2 (1.0-2.1) Laboratory Results - last 24 hr 02/08/17 02/08/17 05:54 14:30 WBC 8.0 RBC 4.41 Hgb 9.3 L Hct 30.5 L MCV 69.1 L MCH 21.2 L MCHC 30.7 L RDW 29.1 H Plt Count 390 MPV 7.9 Neut % (Auto) 55.0 Lymph % (Auto) 29.7 [place] % (Auto) 10.8 H Eos % (Auto) 4.0 Baso % (Auto) 0.5 Neut # 4.4 Lymph # 2.4 [place] # 0.9 H Eos # 0.3 Baso # 0.0 APTT 27 Sodium 141 Potassium 3.7 Chloride 103 Carbon Dioxide 25 Anion Gap 16 BUN 14 Creatinine 1.1 Est GFR ( Amer) > 60 Est GFR (Non-Af Amer) > 60 Random Glucose 82 Calcium 7.8 L Phosphorus 4.2 Magnesium 2.5 H Total Bilirubin 1.3 AST 19 ALT 21 Alkaline Phosphatase 73 Total Protein 7.2 Albumin 3.9 Globulin 3.3 Albumin/Globulin Ratio 1.2 Critical Care Progress Note - Nutrition Nutrition: Nutrition Category Date Time Status low fat [Heart Healthy Diet] [DIET] Diets 02/07/17 Lunch Active Attending/Attestation - Attestation I have personally seen and examined this patient.: Yes I have fully participated in the care of the patient.: Yes I have reviewed all pertinent clinical information: Yes Notes (Text): 02/08/17 17:06 I have seen and examined the patient. Medical records, lab studies, and imaging were reviewed by me and a management plan was formulated on multidisciplinary rounds with resident Dr. Calderon. I agree with their above documented assessment and plan. Will start patient on IV heparin. If patient bleeds will stop and reassess risk /benefit for intermediate frame tender a/c. if patient does not bleed, can consider starting longterm a/c full dose lovenox (short acting), Coumadin or Dabigatran ( reversible) for 6 months for PE/dVT treatment. He will need full coagulopathy workup after intermediate frame tender treatment stopped at 6 months. Plan explained to patient. Critical Care Time 35 minutes. Multi-disciplinary rounds were performed with house staff, nursing, speech therapy, respiratory therapy, pharmacy and nutrition with integrated input from the primary team/attending and other consulting services. The documented time is cumulative and includes review of patient data/exams/labs/chart review and examination of the patient on rounds and throughout the day; time is exclusive of any procedures or teaching time.
[2017-02-08 21:07] LABS: BASO % 0.5 % (0.0-2.0); EOS # 0.4 K/uL (0.0-0.7); EOS % 3.8 % (0.0-4.0); HEMATOCRIT 32.4 % (35.0-51.0); LYMPH % 28.7 % (20.0-40.0); MEAN CELL VOLUME 69.4 fL (80.0-94.0); MEAN CORPUSCULAR HEMOGLOBIN 21.1 pg (27.0-31.0); MEAN CORPUSCULAR HGB CONC 30.5 g/dL (33.0-37.0); MEAN PLATELET VOLUME 8.2 fL (7.2-11.7); MONO # 0.9 K/uL (0.0-0.8); MONO % 8.3 % (0.0-10.0); RED CELL DISTRIBUTION WIDTH 29.1 % (11.5-14.5); WHITE BLOOD COUNT 10.6 K/uL (4.8-10.8)
[2017-02-08] MEDS: Heparin25000 units/250ml 1/2NS 250 ML IV PRN (22:30)
--- NOTE | 2017-02-09 00:13 | CP.PCM.PN ---
Subjective - Date & Time of Evaluation Date of Evaluation: 02/08/17 Time of Evaluation: 19:45 - Subjective Subjective: Still has cough Objective - Vital Signs/Intake and Output Vital Signs (last 24 hours): Temp Pulse Resp BP Pulse Ox 97.8 F 65 18 111/74 98 02/08/17 20:00 02/08/17 23:00 02/08/17 23:00 02/08/17 23:00 02/08/17 23:00 Intake and Output: 02/08/17 02/09/17 18:59 06:59 Intake Total 882.5 224.8 Output Total 770 600 Balance 112.5 -375.2 - Medications Medications: Current Medications Ferric Sodium Gluconate Complex (Ferrlecit) 125 mg IVPB DAILY [facility] Stop: 02/14/17 10:01 Heparin Sodium/Sodium Chloride (Heparin 61806 Units/250ml 1/2 Normal Saline) 250 mls @ 22.861 mls/hr IV .[id number] PRN; Protocol; 20 UNITS/KG/HR PRN Reason: PROTOCOL Last Admin: 02/08/17 22:30 Dose: 22.861 mls/hr Pantoprazole Sodium (Protonix Ec Tab) 40 mg PO DAILY MANUEL Last Admin: 02/08/17 10:08 Dose: 40 mg - Labs Labs: 02/08/17 20:57 02/08/17 05:54 PT 12.5 SECONDS (9.7-12.2) H 02/07/17 06:21 INR 1.1 02/07/17 06:21 APTT 31 SECONDS (21-34) 02/08/17 20:57 - Head Exam Head Exam: ATRAUMATIC - Eye Exam Eye Exam: Normal appearance - ENT Exam ENT Exam: Mucous Membranes Dry - Respiratory Exam Respiratory Exam: NORMAL BREATHING PATTERN - Cardiovascular Exam Cardiovascular Exam: +S1, +S2 - GI/Abdominal Exam GI & Abdominal Exam: Normal Bowel Sounds - Extremities Exam Extremities Exam: Pedal Edema Assessment and Plan (1) Anemia Assessment & Plan: iron deficiency; will start IV iron GI evaluation Status: Acute (2) Pulmonary embolism Assessment & Plan: unprovoked; inherited thrombophilia w/u sent with DVT s/p IVC filter on heparin drip Status: Acute
[2017-02-09 06:40] LABS: BASO # 0.1 K/uL (0.0-0.2); BASO % 0.6 % (0.0-2.0); EOS # 0.5 K/uL (0.0-0.7); EOS % 5.2 % (0.0-4.0); HEMATOCRIT 30.6 % (35.0-51.0); LYMPH # 2.8 K/uL (1.0-4.3); LYMPH % 32.5 % (20.0-40.0); MEAN CELL VOLUME 69.2 fL (80.0-94.0); MEAN CORPUSCULAR HGB CONC 30.3 g/dL (33.0-37.0); MEAN PLATELET VOLUME 9.1 fL (7.2-11.7); MONO # 0.7 K/uL (0.0-0.8); MONO % 8.5 % (0.0-10.0); RED CELL DISTRIBUTION WIDTH 29.4 % (11.5-14.5); WHITE BLOOD COUNT 8.7 K/uL (4.8-10.8)
[2017-02-09 06:48] LABS: CHLORIDE 102 mmol/L (98-107); SODIUM 144 mmol/L (132-148)
[2017-02-09 06:49] LABS: POTASSIUM 3.5 mmol/L (3.6-5.2)
[2017-02-09 06:50] LABS: GFR AFRICAN-AMERICAN > 60
[2017-02-09 06:51] LABS: ALB/GLOB RATIO 1.1 (1.0-2.1); ALKALINE PHOSPHATASE 70 U/L (38-126); ALT/SGPT 23 U/L (21-72); AST/SGOT 19 U/L (17-59); BILIRUBIN,TOTAL 0.8 mg/dL (0.2-1.3); BLOOD UREA NITROGEN 15 mg/dL (9-20); CARBON DIOXIDE 26 mmol/L (22-30); GLUCOSE,RANDOM 74 mg/dL (75-110); PHOSPHOROUS 4.1 mg/dL (2.5-4.5); TOTAL PROTEIN 6.3 g/dL (6.3-8.3)
[2017-02-09 06:52] LABS: CALCIUM 7.5 mg/dl (8.6-10.4); MAGNESIUM 2.3 mg/dL (1.6-2.3)
--- NOTE | 2017-02-09 09:22 | CP.PCM.PN ---
<LaurerowanXavi freeman - Last Filed: 02/09/17 09:18> Subjective - Date & Time of Evaluation Date of Evaluation: 02/09/17 Time of Evaluation: 06:00 - Subjective Subjective: PGY4 GI Fellow Progress Note Patient seen and examined bedside this morning. The patient denies any new complaints. Still has nonproductive cough. No pain noted. Small BM yesterday, no blood noted. 12 system ROS performed and negative except where stated. Objective - Vital Signs/Intake and Output Vital Signs (last 24 hours): Temp Pulse Resp BP Pulse Ox 98.1 F 60 10 L 106/70 97 02/09/17 00:00 02/09/17 08:00 02/09/17 08:00 02/09/17 07:57 02/09/17 08:00 Intake and Output: 02/09/17 02/09/17 06:59 18:59 Intake Total 384.4 70.8 Output Total 1250 0 Balance -865.6 70.8 - Medications Medications: Current Medications Ferric Sodium Gluconate Complex (Ferrlecit) 125 mg IVPB DAILY [facility] Stop: 02/14/17 10:01 Heparin Sodium/Sodium Chloride (Heparin 71129 Units/250ml 1/2 Normal Saline) 250 mls @ 22.861 mls/hr IV .[id number] PRN; Protocol; 20 UNITS/KG/HR PRN Reason: PROTOCOL Last Admin: 02/08/17 22:30 Dose: 22.861 mls/hr Pantoprazole Sodium (Protonix Ec Tab) 40 mg PO DAILY [facility] Last Admin: 02/08/17 10:08 Dose: 40 mg - Labs Labs: 02/09/17 06:31 02/09/17 06:31 PT 12.5 SECONDS (9.7-12.2) H 02/07/17 06:21 INR 1.1 02/07/17 06:21 APTT 40 SECONDS (21-34) H D 02/09/17 06:31 - Constitutional Appears: Non-toxic, No Acute Distress - Eye Exam Eye Exam: EOMI, PERRL - ENT Exam ENT Exam: Mucous Membranes Moist - Respiratory Exam Respiratory Exam: Clear to Ausculation Bilateral. absent: Rales, Rhonchi, Wheezes - Cardiovascular Exam Cardiovascular Exam: RRR, +S1, +S2 - GI/Abdominal Exam GI & Abdominal Exam: Soft, Normal Bowel Sounds. absent: Distended, Firm, Guarding, Rigid, Tenderness, Organomegaly - Extremities Exam Extremities Exam: Normal Inspection. absent: Pedal Edema - Neurological Exam Neurological Exam: Alert, Oriented x3 - Psychiatric Exam Psychiatric exam: Normal Affect, Normal Mood - Skin Skin Exam: Dry, Warm Assessment and Plan - Assessment and Plan (Free Text) Assessment: Patient is a 51yo male with PMHx significant for diverticulitis, internal hemorrhoids who presented to the ED with chronic cough and fatigue for one month -B/L unprovoked pulmonary embolism -L LE DVT -Iron deficiency anemia -H/O Diverticulosis/itis Plan: -Patient remains stable; H/H unchanged, hemodynamically stable -On heparin gtt, plan for initiation of PO anticoagulation by primary service/ hematology; may require lifelong anticoagulation, decision per PCP/hematology -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 -S/P IVC filter placement POD#2 -Started on IV iron replacement therapy -Protonix 40mg PO QAMAC -Recommend outpatient EGD/Colonoscopy on follow up <Vito Shepherd - Last Filed: 02/09/17 16:58> Objective - Vital Signs/Intake and Output Vital Signs (last 24 hours): Temp Pulse Resp BP Pulse Ox 97.6 F 75 13 114/79 97 02/09/17 11:00 02/09/17 14:00 02/09/17 14:00 02/09/17 13:57 02/09/17 14:00 Intake and Output: 02/09/17 02/09/17 06:59 18:59 Intake Total 384.4 982.5 Output Total 1250 300 Balance -865.6 682.5 - Medications Medications: Current Medications Ferric Sodium Gluconate Complex (Ferrlecit) 125 mg IVPB DAILY [facility] Stop: 02/14/17 10:01 Last Admin: 02/09/17 10:23 Dose: 125 mg Heparin Sodium/Sodium Chloride (Heparin 89184 Units/250ml 1/2 Normal Saline) 250 mls @ 22.861 mls/hr IV .[id number] PRN; Protocol; 20 UNITS/KG/HR PRN Reason: PROTOCOL Last Titration: 02/09/17 14:59 Dose: 26 units/kg/hr Pantoprazole Sodium (Protonix Ec Tab) 40 mg PO DAILY [facility] Last Admin: 02/09/17 10:23 Dose: 40 mg Potassium Chloride (Klor-Con 10) 30 meq PO ONCE ONE Stop: 02/10/17 10:16 - Labs Labs: 02/09/17 06:31 02/09/17 06:31 PT 12.5 SECONDS (9.7-12.2) H 02/07/17 06:21 INR 1.1 02/07/17 06:21 APTT 30 SECONDS (21-34) D 02/09/17 14:00 Attending/Attestation - Attestation I have personally seen and examined this patient.: Yes I have fully participated in the care of the patient.: Yes I have reviewed all pertinent clinical information, including history, physical exam and plan: Yes Notes (Text): Patient seen and examined with GI fellow. Agree with his note as documented above with the following additions/exceptions. This is a 51 yo male with PMHx significant for diverticulitis, internal hemorrhoids who is admitted with severe iron deficiency anemia and bilateral pulmonary emboli without overt GI blood loss. His H/H are stable and he has had no witnessed bleeding while started on anticoagulation. He will need elective endoscopic evaluation with EGD/colonoscopy for further investigation of stool occult positive iron deficiency anemia and can follow up with Dr. Cha. Further management as per primary medical service/hematology. 02/09/17 16:57
[2017-02-09] MEDS: Pantoprazole 40 mg EC Tab PO SCH (10:23)
[2017-02-09] MEDS: Ferric Sodium Gluconat Complex 62.5 mg/5 ml Vial IVPB SCH (10:23)
--- NOTE | 2017-02-09 12:06 | CON ---
DATE: 02/09/2017 REQUESTING PHYSICIAN: Dr. Bailey A 51-year-old gentleman was brought in with a history of pulmonary embolism. I was called to do echo cardiogram as I was medical receptionist medical assistant. I discussed the case with Dr. Bailey and the commercial pest control technician was called _ ____ and she finished the echo. The case was discussed with Dr. Bailey and there was no need for consu ltation cardiac hagen. I did not see the patient, did not follow. I will sign off. Johann Avendaño MD cc: [id number] TT: 02/09/2017 12:06:31 Confirmation # [id number] Dictation # [id number]
[2017-02-09] MEDS: Heparin25000 units/250ml 1/2NS 250 ML IV PRN (13:33)
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
--- NOTE | 2017-02-09 17:31 | CP.CCUPN ---
CCU Subjective - Physician Review Events Since Last Encounter (Free Text): 02/09/17 17:27 Patient seen and examined in am, stable, doing well. PE and DVT in left tibilal vein 10 ros asked and negativ,e feels comfortale. pe: bp 114/75 mmhg, hr 67 bpm, rr 11 bpm, o2 94% on ra, afebrile middle age male lying in bed in no acute distress s1, s2 rrr lungs good bilateral air of entry abdomen soft, non tender moving all extremities well a/p: PE with DVT and IVC filter, on heparin drip, PTT not therapeutic yet, no bleed seen anemia: transfused on admission once, got a colonoscopy vs sigmoidoscopy 3 years ago when he was 48 y/o for hemorrhoids, will call GI physician to get data on this. CCU Objective - Vital Signs / Intake & Output Vital Signs (Last 4 hours): Vital Signs Pulse Resp BP Pulse Ox 02/09/17 14:00 75 13 97 02/09/17 13:57 76 20 114/79 95 Intake and Output (Last 8hrs): Intake & Output 02/09/17 02/09/17 02/09/17 06:59 14:59 22:59 Intake Total 182.4 982.5 Output Total 650 300 Balance -467.6 682.5 Intake: Intake, IV Amount 182.4 222.5 Right Antecubital 182.4 198.5 Right Antecubital 24 Oral 0 760 Output: Urine 650 300 Urine, Voided 650 300 Stool 0 0 Other: # Voids Urine, Voided 1 # Bowel Movements 0 - Physical Exam Head: Positive for: Atraumatic, Normocephalic Pupils: Positive for: PERRL Extroacular Muscles: Positive for: EOMI Conjunctiva: Positive for: Normal Mouth: Positive for: Moist Mucous Membranes Neck: Positive for: Normal Range of Motion Respiratory/Chest: Positive for: Good Air Exchange. Negative for: Respiratory Distress, Wheezes Cardiovascular: Positive for: Normal S1, S2 Abdomen: Positive for: Normal Bowel Sounds. Negative for: Tenderness Back: Positive for: Normal Inspection Upper Extremity: Positive for: Normal Inspection Lower Extremity: Positive for: Normal Inspection Neurological: Positive for: CN II-XII Intact Skin: Positive for: Warm, Dry, Normal Color Psychiatric: Positive for: Alert, Oriented x 3 - Medications Active Medications: Active Medications Generic Name Dose Route Start Last Admin Trade Name Freq PRN Reason Stop Dose Admin Ferric Sodium Gluconate Complex 125 mg 02/09/17 10:00 02/09/17 10:23 Ferrlecit IVPB 02/14/17 10:01 125 mg DAILY [facility] Administration Heparin Sodium/Sodium Chloride 250 mls @ 22.861 mls/hr 02/08/17 21:51 02/09/17 14:59 Heparin 55742 Units/250ml 1/2 Normal Saline IV 26 units/kg/hr .[id number] PRN Titration PROTOCOL Protocol 20 UNITS/KG/HR Pantoprazole Sodium 40 mg 02/08/17 10:00 02/09/17 10:23 Protonix Ec Tab PO 40 mg DAILY [facility] Administration Potassium Chloride 30 meq 02/10/17 10:15 Klor-Con 10 PO 02/10/17 10:16 ONCE ONE - Patient Studies Lab Studies: Lab Studies 02/09/17 02/09/17 02/08/17 Range/Units 14:00 06:31 20:57 WBC 8.7 10.6 (4.8-10.8) K/uL RBC 4.43 4.67 (4.40-5.90) Mil/uL Hgb 9.3 L 9.9 L (12.0-18.0) g/dL Hct 30.6 L 32.4 L (35.0-51.0) % MCV 69.2 L 69.4 L (80.0-94.0) fL MCH 21.0 L 21.1 L (27.0-31.0) pg MCHC 30.3 L 30.5 L (33.0-37.0) g/dL RDW 29.4 H 29.1 H (11.5-14.5) % Plt Count 369 459 H (130-400) K/uL MPV 9.1 8.2 (7.2-11.7) fL Neut % (Auto) 53.2 58.7 (50.0-75.0) % Lymph % (Auto) 32.5 28.7 (20.0-40.0) % [place] % (Auto) 8.5 8.3 (0.0-10.0) % Eos % (Auto) 5.2 H 3.8 (0.0-4.0) % Baso % (Auto) 0.6 0.5 (0.0-2.0) % Neut # 4.6 6.2 (1.8-7.0) K/uL Lymph # 2.8 3.0 (1.0-4.3) K/uL [place] # 0.7 0.9 H (0.0-0.8) K/uL Eos # 0.5 0.4 (0.0-0.7) K/uL Baso # 0.1 0.0 (0.0-0.2) K/uL APTT 30 D 40 H D 31 (21-34) SECONDS Sodium 144 (132-148) mmol/L Potassium 3.5 L (3.6-5.2) mmol/L Chloride 102 (98-107) mmol/L Carbon Dioxide 26 (22-30) mmol/L Anion Gap 20 (10-20) BUN 15 (9-20) mg/dL Creatinine 0.9 (0.8-1.5) MG/DL Est GFR ( Amer) > 60 Est GFR (Non-Af Amer) > 60 Random Glucose 74 L (75-110) mg/dL Calcium 7.5 L (8.6-10.4) mg/dl Phosphorus 4.1 (2.5-4.5) mg/dL Magnesium 2.3 (1.6-2.3) mg/dL Total Bilirubin 0.8 (0.2-1.3) mg/dL AST 19 (17-59) U/L ALT 23 (21-72) U/L Alkaline Phosphatase 70 (38-126) U/L Total Protein 6.3 (6.3-8.3) g/dL Albumin 3.4 L (3.5-5.0) g/dL Globulin 3.0 (2.2-3.9) gm/dL Albumin/Globulin Ratio 1.1 (1.0-2.1) Laboratory Results - last 24 hr 02/08/17 02/09/17 02/09/17 20:57 06:31 14:00 WBC 10.6 8.7 RBC 4.67 4.43 Hgb 9.9 L 9.3 L Hct 32.4 L 30.6 L MCV 69.4 L 69.2 L MCH 21.1 L 21.0 L MCHC 30.5 L 30.3 L RDW 29.1 H 29.4 H Plt Count 459 H 369 MPV 8.2 9.1 Neut % (Auto) 58.7 53.2 Lymph % (Auto) 28.7 32.5 [place] % (Auto) 8.3 8.5 Eos % (Auto) 3.8 5.2 H Baso % (Auto) 0.5 0.6 Neut # 6.2 4.6 Lymph # 3.0 2.8 [place] # 0.9 H 0.7 Eos # 0.4 0.5 Baso # 0.0 0.1 APTT 31 40 H D 30 D Sodium 144 Potassium 3.5 L Chloride 102 Carbon Dioxide 26 Anion Gap 20 BUN 15 Creatinine 0.9 Est GFR ( Amer) > 60 Est GFR (Non-Af Amer) > 60 Random Glucose 74 L Calcium 7.5 L Phosphorus 4.1 Magnesium 2.3 Total Bilirubin 0.8 AST 19 ALT 23 Alkaline Phosphatase 70 Total Protein 6.3 Albumin 3.4 L Globulin 3.0 Albumin/Globulin Ratio 1.1 Critical Care Progress Note - Nutrition Nutrition: Nutrition Category Date Time Status low fat [Heart Healthy Diet] [DIET] Diets 02/07/17 Lunch Active
[2017-02-10 04:08] LABS: BASO # 0.2 K/uL (0.0-0.2); BASO % 1.8 % (0.0-2.0); EOS # 0.3 K/uL (0.0-0.7); EOS % 2.4 % (0.0-4.0); HEMATOCRIT 33.4 % (35.0-51.0); LYMPH # 3.2 K/uL (1.0-4.3); LYMPH % 29.3 % (20.0-40.0); MEAN CELL VOLUME 69.9 fL (80.0-94.0); MEAN CORPUSCULAR HEMOGLOBIN 21.1 pg (27.0-31.0); MEAN CORPUSCULAR HGB CONC 30.1 g/dL (33.0-37.0); MEAN PLATELET VOLUME 8.7 fL (7.2-11.7); MONO # 0.5 K/uL (0.0-0.8); MONO % 4.6 % (0.0-10.0); RED CELL DISTRIBUTION WIDTH 29.6 % (11.5-14.5); WHITE BLOOD COUNT 10.8 K/uL (4.8-10.8)
[2017-02-10 04:18] LABS: CHLORIDE 103 mmol/L (98-107); POTASSIUM 3.8 mmol/L (3.6-5.2); SODIUM 141 mmol/L (132-148)
[2017-02-10 04:20] LABS: AST/SGOT 20 U/L (17-59); BILIRUBIN,TOTAL 0.7 mg/dL (0.2-1.3); CARBON DIOXIDE 27 mmol/L (22-30); GFR AFRICAN-AMERICAN > 60
[2017-02-10 04:21] LABS: ALB/GLOB RATIO 1.2 (1.0-2.1); ALKALINE PHOSPHATASE 80 U/L (38-126); ALT/SGPT 23 U/L (21-72); BLOOD UREA NITROGEN 12 mg/dL (9-20); CALCIUM 8.5 mg/dl (8.6-10.4); GLUCOSE,RANDOM 82 mg/dL (75-110); PHOSPHOROUS 4.6 mg/dL (2.5-4.5); TOTAL PROTEIN 7.8 g/dL (6.3-8.3)
[2017-02-10 04:22] LABS: MAGNESIUM 2.4 mg/dL (1.6-2.3)
[2017-02-10 05:04] LABS: CARDIOLIPIN AB (IGA) <11 APL (<=11)
[2017-02-10 06:23] LABS: B2 GLYCOPROTEIN I AB(IGA) <9 SAU (<=20); B2 GLYCOPROTEIN I AB(IGG) <9 SGU (<=20); B2 GLYCOPROTEIN I AB(IGM) <9 SMU (<=20)
[2017-02-10] MEDS ORDERED: Potassium Chloride 10 mEq ER Tab PO ONE (10:15)
[2017-02-10] MEDS: Ferric Sodium Gluconat Complex 62.5 mg/5 ml Vial IVPB SCH (11:30)
[2017-02-10] MEDS: Pantoprazole 40 mg EC Tab PO SCH (11:31)
[2017-02-10] MEDS: Heparin25000 units/250ml 1/2NS 250 ML IV PRN (14:00)
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
[2017-02-10 16:48] LABS: PHOSPHATIDYLSERINE AB IGA <20 U/mL (<20); PHOSPHATIDYLSERINE AB IGM <25 U/mL (<25)
--- NOTE | 2017-02-10 18:00 | CP.PCM.PN ---
Subjective - Date & Time of Evaluation Date of Evaluation: 02/10/17 Time of Evaluation: 15:30 - Subjective Subjective: No complaints To start coumadin today Objective - Vital Signs/Intake and Output Vital Signs (last 24 hours): Temp Pulse Resp BP Pulse Ox 98.4 F 76 17 93/69 L 96 02/10/17 04:00 02/10/17 12:00 02/10/17 12:00 02/10/17 07:58 02/10/17 08:16 Intake and Output: 02/10/17 02/10/17 06:59 18:59 Intake Total 610.9 0 Output Total 1625 700 Balance -1014.1 -700 - Medications Medications: Current Medications Ferric Sodium Gluconate Complex (Ferrlecit) 125 mg IVPB DAILY [facility] Stop: 02/14/17 10:01 Last Admin: 02/10/17 11:30 Dose: 125 mg Heparin Sodium/Sodium Chloride (Heparin 46519 Units/250ml 1/2 Normal Saline) 250 mls @ 22.861 mls/hr IV .[id number] PRN; Protocol; 20 UNITS/KG/HR PRN Reason: PROTOCOL Last Titration: 02/10/17 04:31 Dose: 0 units/kg/hr Pantoprazole Sodium (Protonix Ec Tab) 40 mg PO DAILY [facility] Last Admin: 02/10/17 11:31 Dose: 40 mg Warfarin Sodium (Coumadin) 5 mg PO 1800 [facility] Stop: 02/10/17 18:01 - Labs Labs: 02/10/17 04:00 02/10/17 04:00 PT 12.5 SECONDS (9.7-12.2) H 02/07/17 06:21 INR 1.1 02/07/17 06:21 APTT 90 SECONDS (21-34) H D 02/10/17 12:40 - Head Exam Head Exam: ATRAUMATIC - Eye Exam Eye Exam: Normal appearance - ENT Exam ENT Exam: Mucous Membranes Dry - Respiratory Exam Respiratory Exam: NORMAL BREATHING PATTERN - Cardiovascular Exam Cardiovascular Exam: +S1, +S2 - GI/Abdominal Exam GI & Abdominal Exam: Normal Bowel Sounds - Extremities Exam Extremities Exam: Pedal Edema - Neurological Exam Neurological Exam: Oriented x3 - Psychiatric Exam Psychiatric exam: Normal Affect, Normal Mood - Skin Skin Exam: Warm Assessment and Plan (1) Anemia Assessment & Plan: iron deficiency s/p PRBC transfusion, on IV iron outpatient GI evaluation; FOBT positive H/H stable on anticoagulation Status: Acute (2) Pulmonary embolism Assessment & Plan: with DVT unprovoked inherited thrombophilia w/u sent on heparin and to start coumadin today; goal INR 2-3 s/p IVC filter Status: Acute
[2017-02-11 06:46] LABS: INR 1.1
[2017-02-11 06:49] LABS: BASO % 0.6 % (0.0-2.0); EOS # 0.3 K/uL (0.0-0.7); EOS % 3.7 % (0.0-4.0); LYMPH # 2.8 K/uL (1.0-4.3); LYMPH % 32.5 % (20.0-40.0); MEAN CORPUSCULAR HEMOGLOBIN 21.3 pg (27.0-31.0); MEAN CORPUSCULAR HGB CONC 30.4 g/dL (33.0-37.0); MONO # 0.6 K/uL (0.0-0.8); MONO % 6.9 % (0.0-10.0); RED CELL DISTRIBUTION WIDTH 29.8 % (11.5-14.5); WHITE BLOOD COUNT 8.7 K/uL (4.8-10.8)
[2017-02-11 06:55] LABS: CHLORIDE 101 mmol/L (98-107); SODIUM 143 mmol/L (132-148)
[2017-02-11 06:58] LABS: ALB/GLOB RATIO 1.1 (1.0-2.1); ALKALINE PHOSPHATASE 74 U/L (38-126); ALT/SGPT 30 U/L (21-72); AST/SGOT 27 U/L (17-59); BLOOD UREA NITROGEN 16 mg/dL (9-20); CALCIUM 8.2 mg/dl (8.6-10.4); CARBON DIOXIDE 28 mmol/L (22-30); GFR AFRICAN-AMERICAN > 60; GLUCOSE,RANDOM 78 mg/dL (75-110); TOTAL PROTEIN 6.9 g/dL (6.3-8.3)
[2017-02-11] MEDS: Heparin25000 units/250ml 1/2NS 250 ML IV PRN (07:44)
[2017-02-11] MEDS: Ferric Sodium Gluconat Complex 62.5 mg/5 ml Vial IVPB SCH (10:17)
[2017-02-11] MEDS: Pantoprazole 40 mg EC Tab PO SCH (10:18)
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
[2017-02-12 06:18] LABS: INR 1.1
[2017-02-12 06:30] LABS: CHLORIDE 102 mmol/L (98-107); POTASSIUM 4.3 mmol/L (3.6-5.2); SODIUM 140 mmol/L (132-148)
[2017-02-12 06:32] LABS: ALB/GLOB RATIO 1.1 (1.0-2.1); AST/SGOT 63 U/L (17-59); BILIRUBIN,TOTAL 0.4 mg/dL (0.2-1.3); CARBON DIOXIDE 25 mmol/L (22-30); GFR AFRICAN-AMERICAN > 60; TOTAL PROTEIN 7.1 g/dL (6.3-8.3)
[2017-02-12 06:33] LABS: ALKALINE PHOSPHATASE 67 U/L (38-126); ALT/SGPT 46 U/L (21-72); BLOOD UREA NITROGEN 14 mg/dL (9-20); CALCIUM 8.7 mg/dl (8.6-10.4); GLUCOSE,RANDOM 76 mg/dL (75-110); MAGNESIUM 2.3 mg/dL (1.6-2.3); PHOSPHOROUS 4.5 mg/dL (2.5-4.5)
[2017-02-12 06:47] LABS: BASO # 0.1 K/uL (0.0-0.2); BASO % 1.5 % (0.0-2.0); EOS # 0.3 K/uL (0.0-0.7); EOS % 3.6 % (0.0-4.0); HEMATOCRIT 32.5 % (35.0-51.0); LYMPH % 32.2 % (20.0-40.0); MEAN CELL VOLUME 71.3 fL (80.0-94.0); MEAN CORPUSCULAR HEMOGLOBIN 21.3 pg (27.0-31.0); MEAN CORPUSCULAR HGB CONC 29.9 g/dL (33.0-37.0); MONO # 0.7 K/uL (0.0-0.8); MONO % 7.1 % (0.0-10.0); RED CELL DISTRIBUTION WIDTH 30.6 % (11.5-14.5); WHITE BLOOD COUNT 9.2 K/uL (4.8-10.8)
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
[2017-02-12] MEDS: Pantoprazole 40 mg EC Tab PO SCH (09:52)
[2017-02-12] MEDS: Ferric Sodium Gluconat Complex 62.5 mg/5 ml Vial IVPB SCH (09:52)
[2017-02-12 11:06] LABS: VON WILLERBRAND FACTOR AG 159 % (50-217)
[2017-02-12] MEDS: Heparin25000 units/250ml 1/2NS 250 ML IV PRN (20:00)
[2017-02-13 06:32] LABS: BASO # 0.1 K/uL (0.0-0.2); BASO % 0.6 % (0.0-2.0); CHLORIDE 103 mmol/L (98-107); EOS # 0.3 K/uL (0.0-0.7); EOS % 2.7 % (0.0-4.0); LYMPH # 2.8 K/uL (1.0-4.3); LYMPH % 28.1 % (20.0-40.0); MEAN CELL VOLUME 71.6 fL (80.0-94.0); MEAN CORPUSCULAR HEMOGLOBIN 21.8 pg (27.0-31.0); MEAN CORPUSCULAR HGB CONC 30.4 g/dL (33.0-37.0); MONO # 0.7 K/uL (0.0-0.8); RED CELL DISTRIBUTION WIDTH 30.4 % (11.5-14.5)
[2017-02-13 06:33] LABS: SODIUM 139 mmol/L (132-148)
[2017-02-13 06:35] LABS: ALKALINE PHOSPHATASE 64 U/L (38-126); AST/SGOT 117 U/L (17-59); BILIRUBIN,TOTAL 0.8 mg/dL (0.2-1.3); BLOOD UREA NITROGEN 15 mg/dL (9-20); CARBON DIOXIDE 25 mmol/L (22-30); GFR AFRICAN-AMERICAN > 60; TOTAL PROTEIN 7.2 g/dL (6.3-8.3)
[2017-02-13 06:36] LABS: ALT/SGPT 79 U/L (21-72); CALCIUM 8.6 mg/dl (8.6-10.4); GLUCOSE,RANDOM 78 mg/dL (75-110); INR 1.2; MAGNESIUM 2.3 mg/dL (1.6-2.3)
[2017-02-13 06:38] LABS: POTASSIUM 5.3 mmol/L (3.6-5.2)
[2017-02-13] MEDS ORDERED: Sod Polystyrene Sulf 15 gm/60 ml Oral Susp PO ONE ×2 (09:01→10:33)
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
[2017-02-13] MEDS: Ferric Sodium Gluconat Complex 62.5 mg/5 ml Vial IVPB SCH (10:39)
[2017-02-13] MEDS: Pantoprazole 40 mg EC Tab PO SCH (10:40)
--- NOTE | 2017-02-13 20:18 | CP.PCM.PN ---
Subjective - Date & Time of Evaluation Date of Evaluation: 02/13/17 Time of Evaluation: 19:00 - Subjective Subjective: No complaints. Coumadin 10mg tonight Objective - Vital Signs/Intake and Output Vital Signs (last 24 hours): Temp Pulse Resp BP Pulse Ox 97.7 F 84 16 128/78 96 02/13/17 16:00 02/13/17 16:00 02/13/17 16:00 02/13/17 16:00 02/10/17 08:16 Intake and Output: 02/13/17 02/14/17 18:59 06:59 Intake Total 1341.4 Output Total 1205 Balance 136.4 - Medications Medications: Current Medications Ferric Sodium Gluconate Complex (Ferrlecit) 125 mg IVPB DAILY [facility] Stop: 02/14/17 10:01 Last Admin: 02/13/17 10:39 Dose: 125 mg Heparin Sodium/Sodium Chloride (Heparin 88349 Units/250ml 1/2 Normal Saline) 250 mls @ 22.861 mls/hr IV .[id number] PRN; Protocol; 20 UNITS/KG/HR PRN Reason: PROTOCOL Last Admin: 02/12/17 20:00 Dose: 6.858 mls/hr Pantoprazole Sodium (Protonix Ec Tab) 40 mg PO DAILY [facility] Last Admin: 02/13/17 10:40 Dose: 40 mg - Labs Labs: 02/13/17 06:15 02/13/17 06:15 PT 13.5 SECONDS (9.7-12.2) H 02/13/17 06:15 INR 1.2 02/13/17 06:15 APTT 60 SECONDS (21-34) H D 02/13/17 06:15 - Head Exam Head Exam: ATRAUMATIC - Eye Exam Eye Exam: Normal appearance - ENT Exam ENT Exam: Mucous Membranes Dry - Respiratory Exam Respiratory Exam: NORMAL BREATHING PATTERN - Cardiovascular Exam Cardiovascular Exam: +S1, +S2 - GI/Abdominal Exam GI & Abdominal Exam: Normal Bowel Sounds - Extremities Exam Extremities Exam: Pedal Edema Assessment and Plan (1) Anemia Assessment & Plan: iron deficiency s/p ferrlecit s/p prbc transfusion outpatient GI evaluation for endoscopy Status: Acute (2) Pulmonary embolism Assessment & Plan: unprovoked with DVT s/p IVC filter on therapeutic anticoagulation goal INR 2-3 on coumadin 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
[2017-02-14] MEDS: Heparin25000 units/250ml 1/2NS 250 ML IV PRN ×2 (01:54→08:22)
[2017-02-14 06:24] LABS: BASO # 0.1 K/uL (0.0-0.2); BASO % 0.8 % (0.0-2.0); EOS # 0.2 K/uL (0.0-0.7); EOS % 2.5 % (0.0-4.0); HEMATOCRIT 31.8 % (35.0-51.0); LYMPH # 2.8 K/uL (1.0-4.3); LYMPH % 31.2 % (20.0-40.0); MEAN CELL VOLUME 71.9 fL (80.0-94.0); MEAN CORPUSCULAR HGB CONC 30.6 g/dL (33.0-37.0); MONO # 0.8 K/uL (0.0-0.8); MONO % 8.4 % (0.0-10.0); NRBC % 0.1 % (0.0-2.0); RED CELL DISTRIBUTION WIDTH 31.6 % (11.5-14.5)
[2017-02-14 06:40] LABS: CHLORIDE 104 mmol/L (98-107); POTASSIUM 4.1 mmol/L (3.6-5.2); SODIUM 140 mmol/L (132-148)
[2017-02-14 06:42] LABS: AST/SGOT 60 U/L (17-59); BILIRUBIN,TOTAL 0.2 mg/dL (0.2-1.3); CARBON DIOXIDE 25 mmol/L (22-30); GFR AFRICAN-AMERICAN > 60
[2017-02-14 06:43] LABS: ALKALINE PHOSPHATASE 79 U/L (38-126); ALT/SGPT 88 U/L (21-72); BLOOD UREA NITROGEN 13 mg/dL (9-20); CALCIUM 8.4 mg/dl (8.6-10.4); GLUCOSE,RANDOM 81 mg/dL (75-110); INR 1.5; PHOSPHOROUS 4.8 mg/dL (2.5-4.5); TOTAL PROTEIN 6.7 g/dL (6.3-8.3)
[2017-02-14 06:44] LABS: MAGNESIUM 2.3 mg/dL (1.6-2.3)
[2017-02-14] MEDS: Pantoprazole 40 mg EC Tab PO SCH (09:02)
[2017-02-14] MEDS: Ferric Sodium Gluconat Complex 62.5 mg/5 ml Vial IVPB SCH (09:02)
[2017-02-14] MEDS ORDERED: MethylPREDNISolone 40 mg Vial IVP STA (14:19)
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
--- NOTE | 2017-02-14 16:01 | RAD ---
PROCEDURE: Right Hand Radiographs. HISTORY: Right hand swelling COMPARISON: None. FINDINGS: BONES: Bone alignment and mineralization are normal. There is no acute fracture or bone destruction. JOINTS: Normal. SOFT TISSUES: There is diffuse soft tissue swelling in the hand. OTHER FINDINGS: None. IMPRESSION: No acute fracture or dislocation. Diffuse soft tissue swelling in the hand.
[2017-02-15 06:57] LABS: CHLORIDE 103 mmol/L (98-107); POTASSIUM 4.1 mmol/L (3.6-5.2); SODIUM 140 mmol/L (132-148)
[2017-02-15 06:59] LABS: AST/SGOT 41 U/L (17-59); BILIRUBIN,TOTAL 0.2 mg/dL (0.2-1.3); CARBON DIOXIDE 23 mmol/L (22-30); GFR AFRICAN-AMERICAN > 60
[2017-02-15 07:00] LABS: ALKALINE PHOSPHATASE 85 U/L (38-126); ALT/SGPT 77 U/L (21-72); BLOOD UREA NITROGEN 15 mg/dL (9-20); CALCIUM 8.9 mg/dl (8.6-10.4); GLUCOSE,RANDOM 99 mg/dL (75-110); PHOSPHOROUS 4.4 mg/dL (2.5-4.5); TOTAL PROTEIN 7.4 g/dL (6.3-8.3)
[2017-02-15 07:01] LABS: MAGNESIUM 2.2 mg/dL (1.6-2.3)
[2017-02-15 07:08] LABS: BASO # 0.1 K/uL (0.0-0.2); BASO % 0.9 % (0.0-2.0); EOS % 0.3 % (0.0-4.0); HEMATOCRIT 33.2 % (35.0-51.0); LYMPH # 2.4 K/uL (1.0-4.3); LYMPH % 17.9 % (20.0-40.0); MEAN CELL VOLUME 72.3 fL (80.0-94.0); MEAN CORPUSCULAR HEMOGLOBIN 22.1 pg (27.0-31.0); MEAN CORPUSCULAR HGB CONC 30.6 g/dL (33.0-37.0); MONO # 0.8 K/uL (0.0-0.8); MONO % 6.1 % (0.0-10.0); NRBC % 0.1 % (0.0-2.0); RED CELL DISTRIBUTION WIDTH 31.9 % (11.5-14.5)
[2017-02-15 07:10] LABS: WHITE BLOOD COUNT 13.6 K/uL (4.8-10.8)
[2017-02-15 07:15] LABS: INR 1.9
[2017-02-15 08:12] VITALS: BP 130/93; PULSE 68; RESP 18; TEMP 97.4; O2SAT 97
[2017-02-15] MEDS ORDERED: Pneumococcal 23-Valent Vaccine SC ONE (09:00)
[2017-02-15] MEDS: Pantoprazole 40 mg EC Tab PO SCH (09:20)
--- NOTE | 2017-02-15 10:49 | VASCLAB ---
PROCEDURE: Right Upper Extremity Venous Duplex Exam HISTORY: Right upper extremity swelling PRIORS: None. TECHNIQUE: Right upper extremity, internal jugular, subclavian, axillary, brachial, ulnar, radial, basilic and upper cephalic veins were evaluated. Flow was assessed with color Doppler, compressibility, assessment of phasic flow and augmentation response. Report prepared by HENRRY Hebert FINDINGS: RIGHT: 1. Internal Jugular: 1.1. Compressibility - Fully compressible: Thrombus - None : Flow - Phasic: Augmentation -Normal: Reflux - None. 2. Subclavian: 2.1. Compressibility - Fully compressible: Thrombus - None : Flow - Phasic: Augmentation -Normal: Reflux - None. 3. Axillary: 3.1. Compressibility - Fully compressible: Thrombus - None : Flow - Phasic: Augmentation -Normal: Reflux - None. 4. Brachial: 4.1. Compressibility - Fully compressible: Thrombus - None: Flow - Phasic: Augmentation -Normal: Reflux - None. 5. Ulnar: 5.1. Compressibility - Fully compressible: Thrombus - None: Flow - Phasic: Augmentation -Normal: Reflux - None. 6. Radial: 6.1. Compressibility - Fully compressible: Thrombus - None: Flow - Phasic: Augmentation - Normal: Reflux - None. 7. Cephalic: 7.1. Compressibility - Fully compressible: Thrombus - None: Flow - Phasic: Augmentation -Normal: Reflux - None. 8. Basilic: 8.1. Compressibility - Fully compressible: Thrombus - None: Flow - Phasic: Augmentation -Normal: Reflux - None. OTHER FINDINGS: Small caliber veins noted in the right upper extremity. IMPRESSION: Right: No evidence of vein thrombosis of the right upper extremity with excellent venous flow. Normal valve function noted of the right side. Normal venous flow noted in the left internal jugular and left subclavian veins.
--- NOTE | 2017-02-15 22:27 | CP.PCM.DIS ---
<Ana Harvey - Last Filed: 02/15/17 23:33> Provider - Provider Date of Admission: 02/06/17 15:18 Attending physician: Amanda Boateng DO Primary care physician: Dr. Darvin Stoll Consults: Cardiology, Dr. Avendaño Hematology Oncology, Dr. Gallagher Time Spent in preparation of Discharge (in minutes): 41 Diagnosis - Discharge Diagnosis (1) Pulmonary embolism Status: Acute Comment: please see hospital course (2) Symptomatic anemia Status: Acute Comment: please see hospital course (3) Hiatal hernia Status: Chronic Comment: please see hospital course (4) GI bleed Status: Suspected Comment: please see hospital course (5) Hand edema Status: Acute Comment: please see hospital course Hospital Course - Lab Results Lab Results: Micro Results 02/06/17 18:14 Naris MRSA Culture (Admit) - Final MRSA NOT DETECTED Most Recent Lab Values WBC 13.6 K/uL (4.8-10.8) H D 02/15/17 06:41 RBC 4.60 Mil/uL (4.40-5.90) 02/15/17 06:41 Hgb 10.2 g/dL (12.0-18.0) L 02/15/17 06:41 Hct 33.2 % (35.0-51.0) L 02/15/17 06:41 MCV 72.3 fL (80.0-94.0) L 02/15/17 06:41 MCH 22.1 pg (27.0-31.0) L 02/15/17 06:41 MCHC 30.6 g/dL (33.0-37.0) L 02/15/17 06:41 RDW 31.9 % (11.5-14.5) H 02/15/17 06:41 Plt Count 472 K/uL (130-400) H 02/15/17 06:41 MPV 9.0 fL (7.2-11.7) 02/15/17 06:41 Neut % (Auto) 74.8 % (50.0-75.0) 02/15/17 06:41 Lymph % (Auto) 17.9 % (20.0-40.0) L 02/15/17 06:41 [place] % (Auto) 6.1 % (0.0-10.0) 02/15/17 06:41 Eos % (Auto) 0.3 % (0.0-4.0) 02/15/17 06:41 Baso % (Auto) 0.9 % (0.0-2.0) 02/15/17 06:41 Neut # 10.2 K/uL (1.8-7.0) H 02/15/17 06:41 Lymph # 2.4 K/uL (1.0-4.3) 02/15/17 06:41 [place] # 0.8 K/uL (0.0-0.8) 02/15/17 06:41 Eos # 0.0 K/uL (0.0-0.7) 02/15/17 06:41 Baso # 0.1 K/uL (0.0-0.2) 02/15/17 06:41 Differential Comment 02/06/17 12:52 Smear Path Review 02/06/17 12:52 Retic Count 1.6 % (0.5-1.5) H 02/07/17 06:21 PT 21.3 SECONDS (9.7-12.2) H 02/15/17 06:41 INR 1.9 02/15/17 06:41 APTT 62 SECONDS (21-34) H 02/15/17 06:41 D-Dimer, Quantitative 383 ng/mlDDU (0-243) H 02/06/17 12:33 Protein C Activity 110 % (70-180) 02/07/17 08:41 Protein S Activity 86 % (70-150) 02/07/17 08:41 Antithrombin III Activ 95 % activity (80-120) 02/07/17 08:41 Factor V see note (()) 02/07/17 08:41 von Willebrand Antigen 159 % (50-217) 02/07/17 08:41 Puncture Site Rr 02/07/17 09:54 pCO2 38 mm/Hg (35-45) 02/07/17 09:54 pO2 89 mm/Hg (80-100) 02/07/17 09:54 HCO3 26.2 mmol/L (21-28) 02/07/17 09:54 ABG pH 7.44 (7.35-7.45) 02/07/17 09:54 ABG Total CO2 27.0 mmol/L (22-28) 02/07/17 09:54 ABG O2 Saturation 97.1 % (95-98) 02/07/17 09:54 ABG Base Excess 1.6 mmol/L (-2.0-3.0) 02/07/17 09:54 ABG Hemoglobin 8.7 g/dL (11.7-17.4) L 02/07/17 09:54 ABG Carboxyhemoglobin 0.9 % (0.5-1.5) 02/07/17 09:54 POC ABG HHb (Measured) 2.9 % (0.0-5.0) 02/07/17 09:54 ABG Methemoglobin 0.3 % (0.0-3.0) 02/07/17 09:54 Juan Test Pos 02/07/17 09:54 A-a O2 Difference 56.0 mm/Hg 02/07/17 09:54 Respiratory Index 0.6 02/07/17 09:54 Hgb O2 Saturation 95.9 % (95.0-98.0) 02/07/17 09:54 Liter Flow 2.0 02/07/17 09:54 FiO2 27.0 % 02/07/17 09:54 Sodium 140 mmol/L (132-148) 02/15/17 06:41 Potassium 4.1 mmol/L (3.6-5.2) 02/15/17 06:41 Chloride 103 mmol/L (98-107) 02/15/17 06:41 Carbon Dioxide 23 mmol/L (22-30) 02/15/17 06:41 Anion Gap 19 (10-20) 02/15/17 06:41 BUN 15 mg/dL (9-20) 02/15/17 06:41 Creatinine 1.0 MG/DL (0.8-1.5) 02/15/17 06:41 Est GFR ( Amer) > 60 02/15/17 06:41 Est GFR (Non-Af Amer) > 60 02/15/17 06:41 Random Glucose 99 mg/dL (75-110) 02/15/17 06:41 Hemoglobin A1c 5.7 % (4.2-6.5) 02/07/17 06:21 Calcium 8.9 mg/dl (8.6-10.4) 02/15/17 06:41 Phosphorus 4.4 mg/dL (2.5-4.5) 02/15/17 06:41 Magnesium 2.2 mg/dL (1.6-2.3) 02/15/17 06:41 Iron 37 ug/dL (49-181) L 02/07/17 06:17 TIBC 443 ug/dL (250-450) 02/07/17 06:17 % Saturation 8 (20-55) L 02/07/17 06:17 Ferritin 6.2 ng/mL 02/07/17 06:17 Total Bilirubin 0.2 mg/dL (0.2-1.3) 02/15/17 06:41 AST 41 U/L (17-59) 02/15/17 06:41 ALT 77 U/L (21-72) H 02/15/17 06:41 Alkaline Phosphatase 85 U/L (38-126) 02/15/17 06:41 Lactate Dehydrogenase 497 U/L (313-618) 02/07/17 06:17 Total Creatine Kinase 56 U/L (55-170) 02/06/17 12:33 CK-MB (Mass) 0.22 ng/mL (0.0-3.38) 02/06/17 12:33 Troponin I < 0.0120 ng/mL (0.00-0.120) 02/06/17 12:33 NT-Pro-B Natriuret Pep 109 pg/mL (0-900) 02/06/17 12:33 Total Protein 7.4 g/dL (6.3-8.3) 02/15/17 06:41 Albumin 3.7 g/dL (3.5-5.0) 02/15/17 06:41 Globulin 3.7 gm/dL (2.2-3.9) 02/15/17 06:41 Albumin/Globulin Ratio 1.0 (1.0-2.1) 02/15/17 06:41 Triglycerides 141 mg/dL (0-149) 02/07/17 06:17 Cholesterol 148 mg/dL (0-199) 02/07/17 06:17 LDL Cholesterol Direct 93 mg/dL (0-129) 02/07/17 06:17 HDL Cholesterol 25 mg/dL (30-70) L 04/05/17 06:17 Vitamin B12 257 pg/mL (239-931) 02/07/17 06:17 Folate 19.4 ng/mL 02/07/17 06:17 Homocysteine 10.5 umol/L (6.6-14.8) 02/07/17 06:17 Free T4 1.05 ng/dL (0.78-2.19) 02/07/17 06:17 TSH 3rd Generation 3.89 mIU/L (0.46-4.68) 02/07/17 06:17 Stool Occult Blood Positive (NEGATIVE) H 02/06/17 13:25 Aifp-8-Lputqbriyrnw Ab <9 JIHAN (<=20) 02/07/17 08:41 Beta-2 GPI IgG Ab <9 SGU (<=20) 02/07/17 08:41 Beta-2 GPI IgM Ab <9 SMU (<=20) 02/07/17 08:41 Phosphatidylserine IgG <10 U/mL (<10) 02/07/17 08:41 Phosphatidylserine IgA <20 U/mL (<20) 02/07/17 08:41 Phosphatidylserine IgM <25 U/mL (<25) 02/07/17 08:41 Anti-Phospholipid Intrp see note (()) 02/07/17 08:41 Anti-Cardiolipin IgG Ab <14 GPL (<=14) 02/07/17 08:41 Anti-Cardiolipin IgA Ab <11 APL (<=11) 02/07/17 08:41 Anti-Cardiolipin IgM Ab <12 MPL (<=12) 02/07/17 08:41 Prothrombin Mut Interp see note (()) 02/07/17 08:41 Prothrombin Gene Mutate see note (()) 02/07/17 08:41 Prothromb Gene Review see note (()) 02/07/17 08:41 Blood Type A POSITIVE 02/06/17 13:27 Blood Type Confirm A POSITIVE 02/06/17 13:27 Antibody Screen Negative 02/06/17 13:27 - Hospital Course Hospital Course: CC: Cough with shortness of breath HPI: 51 year old male with PMHx significant for internal hemorrhoids and diverticulitis presents with complaints of non-productive cough for 4 week duration. Patient states that he started taking Mucinex at home without any relief. He states that he recently started experiencing some lightheadedness as well as some dyspnea but not necessarily with exertion. Patient also admitted to some left calf pain approx one week ago. Patient states that he lost his job sometime around fall and became a bit more sedentary that he would like. He denies sitting on the sofa endlessly; however states that he could have exercised more. Patient denies chest pain, palpitations, paresthesias, headaches , recent long distance travel greater than 3 hours, trauma, recent surgeries, nausea, vomiting or diarrhea at this time. PMHx: as listed above; no history of hematologic disorder PSHx: Cholecystectomy Fam Hx: Mother recently had surgery for brain tumor Social Hx: Smoked as a teen ( rare occasion); drinks scotch every couple of weeks; admits to social marijuana use ( last July 2016) Meds: Mucinex, Tylenol PM; Supplements: Acidophilus, Saw palmetto, fish oil Allergies: PCN ( unclear reaction) PMD: Dr. Darvin Stoll ( Last visited in the summer) In ED: Hgb noted to be 4.9; stool occult blood noted to be positive; D-Dimer elevated. Patient being transfused PRBC. During hospital course, the following imaging was done: Ct Chest (02/06/17): bilateral pulmonary emboli, 7mm hyperdense nodule, moderate to large hiatal hernia, cholecystecomy clips Echocardiogram (02/07/17): systolic function; no evidence of right heart strain ( official report available in the EMR) Duplex Scan Lower Extremity artery (02/06/17): Negative for deep or superficial vein thrombosis of right lower extremity. Normal valve function noted of the right side. Acute thrombosis of the left posterior tibial vein with severe reduction of the venous return. Duplex Scan of Upper Extremity Artery (02/14/17): No evidence of vein thrombosis of the right upper extremity with excellent venous flow. Normal valve function noted of the right side. Normal venous flow noted in left internal jugular and left subclavian veins. Hand X-Ray (02/14/17): No acute fracture or dislocation. Diffuse soft tissue swelling in the hand. Patient seen in ICU Bed 18 awaiting bed to the telemetry floor. Patient reports had non-bloody bowel movement, denies BRBPR, reports cough has improved. Patient reports right hand swelling which has gotten worse in the past three days. Patient has recent peripheral IV site over the right upper extremity which was not giving any blood return over night and patient received a new peripheral IV access over the left upper extremity. Patient given additional Lasix 20mg IVX1, Solumedrol 40mg IV, ordered for hand xray and right upper extremity dopper. Patient is currently being bridged from heparin drip to Coumadin. Patient's INR : 1.5 Patient to be given Coumadin 10mg PO tonight. Heparin drip to be adjusted based on PTT. Hemoglobin remains stable at 9.7. Patient will need to follow-up outpatient with his GI for repeat EGD and colonoscopy. (1) Pulmonary Embolism Lower extremity DVT+ Patient was diagnosed with bilateral pulmonary emboli and acute thrombosis of left posterior tibial vein via CTA and Duplex Scan of Lower Extremity Artery, respectively. Clinical picture was complicated as patient was found to be acutely anemic with hemoglobin of 4.9. As a result, chemical anticoagulation was contraindicated. Stool occult was found to be positive; however, endoscopy was not able to be performed due to current diagnoses of pulmonary emboli. Patient was recommended to have outpatient endoscopy/colonoscopy. Patient reports prior colonoscopy in 2008, which reports internal hemorrhoids and diverticulosis. Patient was transfused packed RBCs. Echocardiogram was done but did not show evidence of right heart strain. Interventional radiologist, Dr. Cai, placed an IVC filter on 02/07/17. Supplier Engineer/Oncologist, Dr. Gallagher, was consulted. Hypercoaguability workup was found to be negative:antithrombin 3 : within normal limits, factor 5 leiden, protein c: within normal limits, protein s: within normal limits, prothrombin gene: not detected, von willibrand : within normal limits, antiphospholipid syndrome: negative. Iron studies were also performed and showed low iron, normal TIBC, low iron saturation; low- normal ferritin; and elevated reticulocyte count. Patient was started on IV Ferrlecet. Patient was started on heparin drip following IVC filter placement. Coagulation factors were monitored. Patient was started on Coumadin on 02/10/17 and INR was monitored. CT Chest also showed a moderate to large hiatal hernia. Patient denied symptoms of dysphagia and was instructed to follow-up outpatient. During hospital course, he was also noted to have edematous right upper extremity. Patient has recent peripheral IV site over the right upper extremity which was not giving any blood return over and patient received a new peripheral IV access over the left upper extremity. Patient also was given additional Lasix 20mg IVX1, Solumedrol 40mg IV, ordered for hand xray and right upper extremity dopper which were both negative. Patient was bridged from heparin to Coumadin and discharged (INR 1.9) with instruction to take Coumadin 7.5 mg po daily for two weeks and make walk in appointment at clinic to have INR checked. Please note this is a summary of hospital course. For full detail refer to patient chart. Discharge instructions were given as follows: Patient medically stable for discharge home . Patient instructed to take the follow prescribed medications: Coumadin 7.5 mg tab by mouth daily Ferrous Sulfate 325 mg by mouth twice daily. Take with juice and over-the- counter stool softener such as Colace or Miralax. Patient instructed to come to [facility] on Sunday as a walk-in to have INR checked. Patient educated that green leafy vegetables can affect his INR. Patient instructed to follow-up at [facility] ) to establish care within one week of discharge. Patient instructed to follow-up with personal cloth tearer or receive referral from clinic for follow-up colonoscopy. Patient instructed to have prior colonoscopy record faxed over to clinic. Patient instructed to follow-up with interventional radiologist, Dr. Cai, for possible removal of IVC filter in 6 months (August 2017). Patient will not require further monitoring for pulmonary nodule and hiatal hernia noted on CT chest. Patient informed if symptoms recur to return to emergency department. Patient given detailed instructions at bedside. Patient understands and agrees. - Date & Time of H&P Date of H&P: 02/06/17 Time of H&P: 18:30 Discharge Exam - Head Exam Head Exam: ATRAUMATIC, NORMAL INSPECTION, NORMOCEPHALIC - Eye Exam Eye Exam: EOMI, Normal appearance, PERRL Pupil Exam: NORMAL ACCOMODATION, PERRL - Respiratory Exam Respiratory Exam: Clear to PA & Lateral, NORMAL BREATHING PATTERN, UNREMARKABLE - Cardiovascular Exam Cardiovascular Exam: +S1, +S2. absent: Tachycardia - GI/Abdominal Exam GI & Abdominal Exam: Normal Bowel Sounds, Unremarkable. absent: Distended, Firm - Extremities Exam Extremities exam: normal capillary refill, normal inspection - Back Exam Back exam: NORMAL INSPECTION - Neurological Exam Neurological exam: Alert, Oriented x3 - Psychiatric Exam Psychiatric exam: Normal Affect, Normal Mood - Skin Skin Exam: Normal Color, Warm Discharge Plan - Discharge Medications Prescriptions: RX: Warfarin [Coumadin] 7.5 mg PO 1800 #14 tab RX: Ferrous Sulfate 325 mg PO BID #60 tablet - Follow Up Plan Condition: SERIOUS Disposition: HOME/ ROUTINE Instructions: Warfarin (By mouth), Pulmonary Embolism (DC), Deep Venous Thrombosis (DC) Additional Instructions: Patient medically stable for discharge home . Patient instructed to take the follow prescribed medications: Coumadin 7.5 mg tab by mouth daily Ferrous Sulfate 325 mg by mouth twice daily. Take with juice and over-the- counter stool softener such as Colace or Miralax. Patient instructed to come to [facility] in [facility] on Sunday as a walk-in to have INR checked. Patient educated that green leafy vegetables can affect his INR. Patient instructed to follow-up at [facility] ) to establish care within one week of discharge. Patient instructed to follow-up with personal cloth tearer or receive referral from clinic for follow-up colonoscopy. Patient instructed to have prior colonoscopy record faxed over to clinic. Patient instructed to follow-up with interventional radiologist, Dr. Cai, for possible removal of IVC filter in 6 months (August 2017). Patient will not require further monitoring for pulmonary nodule and hiatal hernia noted on CT chest. Patient informed if symptoms recur to return to emergency department. Patient given detailed instructions at bedside. Patient understands and agrees. Referrals: Kamaljit Cai MD [Staff Provider] - Jhonny Cha MD [Staff Provider] - 4 Weeks (Needs EGD/Colonoscopy - iron deficiency anemia; B/L PE) <Amanda Boateng V - Last Filed: 02/16/17 08:00> Provider - Provider Date of Admission: 02/06/17 15:18 Attending physician: Amanda Boateng DO Diagnosis - Discharge Diagnosis (1) Pulmonary embolism Status: Acute (2) GI bleed Status: Suspected (3) Symptomatic anemia Status: Acute (4) Positive occult stool blood test Status: Acute (5) Hiatal hernia Status: Chronic (6) Hypokalemia Status: Acute (7) Prophylactic measure Status: Acute Hospital Course - Lab Results Lab Results: Micro Results 02/06/17 18:14 Naris MRSA Culture (Admit) - Final MRSA NOT DETECTED Most Recent Lab Values WBC 13.6 K/uL (4.8-10.8) H D 02/15/17 06:41 RBC 4.60 Mil/uL (4.40-5.90) 02/15/17 06:41 Hgb 10.2 g/dL (12.0-18.0) L 02/15/17 06:41 Hct 33.2 % (35.0-51.0) L 02/15/17 06:41 MCV 72.3 fL (80.0-94.0) L 02/15/17 06:41 MCH 22.1 pg (27.0-31.0) L 02/15/17 06:41 MCHC 30.6 g/dL (33.0-37.0) L 02/15/17 06:41 RDW 31.9 % (11.5-14.5) H 02/15/17 06:41 Plt Count 472 K/uL (130-400) H 02/15/17 06:41 MPV 9.0 fL (7.2-11.7) 02/15/17 06:41 Neut % (Auto) 74.8 % (50.0-75.0) 02/15/17 06:41 Lymph % (Auto) 17.9 % (20.0-40.0) L 02/15/17 06:41 [place] % (Auto) 6.1 % (0.0-10.0) 02/15/17 06:41 Eos % (Auto) 0.3 % (0.0-4.0) 02/15/17 06:41 Baso % (Auto) 0.9 % (0.0-2.0) 02/15/17 06:41 Neut # 10.2 K/uL (1.8-7.0) H 02/15/17 06:41 Lymph # 2.4 K/uL (1.0-4.3) 02/15/17 06:41 [place] # 0.8 K/uL (0.0-0.8) 02/15/17 06:41 Eos # 0.0 K/uL (0.0-0.7) 02/15/17 06:41 Baso # 0.1 K/uL (0.0-0.2) 02/15/17 06:41 Differential Comment 02/06/17 12:52 Smear Path Review 02/06/17 12:52 Retic Count 1.6 % (0.5-1.5) H 02/07/17 06:21 PT 21.3 SECONDS (9.7-12.2) H 02/15/17 06:41 INR 1.9 02/15/17 06:41 APTT 62 SECONDS (21-34) H 02/15/17 06:41 D-Dimer, Quantitative 383 ng/mlDDU (0-243) H 02/06/17 12:33 Protein C Activity 110 % (70-180) 02/07/17 08:41 Protein S Activity 86 % (70-150) 02/07/17 08:41 Antithrombin III Activ 95 % activity (80-120) 02/07/17 08:41 Factor V see note (()) 02/07/17 08:41 von Willebrand Antigen 159 % (50-217) 02/07/17 08:41 Puncture Site Rr 02/07/17 09:54 pCO2 38 mm/Hg (35-45) 02/07/17 09:54 pO2 89 mm/Hg (80-100) 02/07/17 09:54 HCO3 26.2 mmol/L (21-28) 02/07/17 09:54 ABG pH 7.44 (7.35-7.45) 02/07/17 09:54 ABG Total CO2 27.0 mmol/L (22-28) 02/07/17 09:54 ABG O2 Saturation 97.1 % (95-98) 02/07/17 09:54 ABG Base Excess 1.6 mmol/L (-2.0-3.0) 02/07/17 09:54 ABG Hemoglobin 8.7 g/dL (11.7-17.4) L 02/07/17 09:54 ABG Carboxyhemoglobin 0.9 % (0.5-1.5) 02/07/17 09:54 POC ABG HHb (Measured) 2.9 % (0.0-5.0) 02/07/17 09:54 ABG Methemoglobin 0.3 % (0.0-3.0) 02/07/17 09:54 Juan Test Pos 02/07/17 09:54 A-a O2 Difference 56.0 mm/Hg 02/07/17 09:54 Respiratory Index 0.6 02/07/17 09:54 Hgb O2 Saturation 95.9 % (95.0-98.0) 02/07/17 09:54 Liter Flow 2.0 02/07/17 09:54 FiO2 27.0 % 02/07/17 09:54 Sodium 140 mmol/L (132-148) 02/15/17 06:41 Potassium 4.1 mmol/L (3.6-5.2) 02/15/17 06:41 Chloride 103 mmol/L (98-107) 02/15/17 06:41 Carbon Dioxide 23 mmol/L (22-30) 02/15/17 06:41 Anion Gap 19 (10-20) 02/15/17 06:41 BUN 15 mg/dL (9-20) 02/15/17 06:41 Creatinine 1.0 MG/DL (0.8-1.5) 02/15/17 06:41 Est GFR ( Amer) > 60 02/15/17 06:41 Est GFR (Non-Af Amer) > 60 02/15/17 06:41 Random Glucose 99 mg/dL (75-110) 02/15/17 06:41 Hemoglobin A1c 5.7 % (4.2-6.5) 02/07/17 06:21 Calcium 8.9 mg/dl (8.6-10.4) 02/15/17 06:41 Phosphorus 4.4 mg/dL (2.5-4.5) 02/15/17 06:41 Magnesium 2.2 mg/dL (1.6-2.3) 02/15/17 06:41 Iron 37 ug/dL (49-181) L 02/07/17 06:17 TIBC 443 ug/dL (250-450) 02/07/17 06:17 % Saturation 8 (20-55) L 02/07/17 06:17 Ferritin 6.2 ng/mL 02/07/17 06:17 Total Bilirubin 0.2 mg/dL (0.2-1.3) 02/15/17 06:41 AST 41 U/L (17-59) 02/15/17 06:41 ALT 77 U/L (21-72) H 02/15/17 06:41 Alkaline Phosphatase 85 U/L (38-126) 02/15/17 06:41 Lactate Dehydrogenase 497 U/L (313-618) 02/07/17 06:17 Total Creatine Kinase 56 U/L (55-170) 02/06/17 12:33 CK-MB (Mass) 0.22 ng/mL (0.0-3.38) 02/06/17 12:33 Troponin I < 0.0120 ng/mL (0.00-0.120) 02/06/17 12:33 NT-Pro-B Natriuret Pep 109 pg/mL (0-900) 02/06/17 12:33 Total Protein 7.4 g/dL (6.3-8.3) 02/15/17 06:41 Albumin 3.7 g/dL (3.5-5.0) 02/15/17 06:41 Globulin 3.7 gm/dL (2.2-3.9) 02/15/17 06:41 Albumin/Globulin Ratio 1.0 (1.0-2.1) 02/15/17 06:41 Triglycerides 141 mg/dL (0-149) 02/07/17 06:17 Cholesterol 148 mg/dL (0-199) 02/07/17 06:17 LDL Cholesterol Direct 93 mg/dL (0-129) 02/07/17 06:17 HDL Cholesterol 25 mg/dL (30-70) L 02/07/17 06:17 Vitamin B12 257 pg/mL (239-931) 02/07/17 06:17 Folate 19.4 ng/mL 02/07/17 06:17 Homocysteine 10.5 umol/L (6.6-14.8) 02/07/17 06:17 Free T4 1.05 ng/dL (0.78-2.19) 02/07/17 06:17 TSH 3rd Generation 3.89 mIU/L (0.46-4.68) 02/07/17 06:17 Stool Occult Blood Positive (NEGATIVE) H 02/06/17 13:25 Rddy-4-Uzokeeayojhu Ab <9 JIHAN (<=20) 02/07/17 08:41 Beta-2 GPI IgG Ab <9 SGU (<=20) 02/07/17 08:41 Beta-2 GPI IgM Ab <9 SMU (<=20) 02/07/17 08:41 Phosphatidylserine IgG <10 U/mL (<10) 02/07/17 08:41 Phosphatidylserine IgA <20 U/mL (<20) 02/07/17 08:41 Phosphatidylserine IgM <25 U/mL (<25) 02/07/17 08:41 Anti-Phospholipid Intrp see note (()) 02/07/17 08:41 Anti-Cardiolipin IgG Ab <14 GPL (<=14) 02/07/17 08:41 Anti-Cardiolipin IgA Ab <11 APL (<=11) 02/07/17 08:41 Anti-Cardiolipin IgM Ab <12 MPL (<=12) 02/07/17 08:41 Prothrombin Mut Interp see note (()) 02/07/17 08:41 Prothrombin Gene Mutate see note (()) 02/07/17 08:41 Prothromb Gene Review see note (()) 02/07/17 08:41 Blood Type A POSITIVE 02/06/17 13:27 Blood Type Confirm A POSITIVE 02/06/17 13:27 Antibody Screen Negative 02/06/17 13:27 Attending/Attestation - Attestation I have personally seen and examined this patient.: Yes I have fully participated in the care of the patient.: Yes I have reviewed all pertinent clinical information, including history, physical exam and plan: Yes Notes (Text): This is a late computer entry 02/15/17. Patient seen, examined and case discussed with day-time resident. Patient has a mild white count secondary to the Solumedrol from yesterday. patient's right hand is visibly improved, less edema noted. no acute fracture noted on hand xray. Patient's hemoglobin remains stable. No events of bleeding nor blooding bowel movements note. Patient's INR is 1.9 today. Patient given Coumadin 7.5mg PO once prior to discharge today. Patient advised to followup in the [facility] for follow-up up INR and refill on Coumadin. Patient also provided iron supplementation and advised to take with juice for adequate absorption and fiber based products to prevent constipation. patient advised that it will turn the stool black. Discharge instructions were given as follows: Patient medically stable for discharge home . Patient instructed to take the follow prescribed medications: Coumadin 7.5 mg tab by mouth daily (14/0) Ferrous Sulfate 325 mg by mouth twice daily (60/0). Take with juice and over-the -counter stool softener such as Colace or Miralax. Patient instructed to come to [facility] in [facility] on Sunday, February 19, 2017 as a walk-in to have INR checked and refill on Coumadin. Patient educated that green leafy vegetables can affect his INR adversely. Patient instructed to follow-up at [facility] ) to establish care within one week of discharge. Patient instructed to follow-up with personal cloth tearer or receive referral from clinic for follow-up colonoscopy. Patient instructed to have prior colonoscopy record faxed over to clinic. Patient will need a follow-up EGD /Colonoscopy when stable per GI Patient instructed to follow-up with interventional radiologist, Dr. Cai, for possible removal of IVC filter in 6 months (August 2017). Patient will require further monitoring for pulmonary nodule and hiatal hernia noted on CT chest. Patient informed if symptoms recur to return to emergency department. Patient given detailed instructions at bedside. Patient understands and agrees. Please note this is a summary of hospital course. For full detail refer to patient chart. (1) Pulmonary Embolism Lower extremity DVT+ * Currently on heparin drip being bridged to Coumadin * Ct Chest (02/06/17): bilateral pulmonary emboli, 7mm hyperdense nodule, moderate to large hiatal hernia, cholecystecomy clips * Heme/onc consult, Dr. Shyam Gallagher, help appreciated * hypercoaguability workup negative (antithrombin 3: within normal limits, factor 5 leiden, protein c: within normal limits, protein s: within normal limits, prothrombin gene: not detected, von willibrand: within normal limits, antiphospholipid syndrome: negative) * Patient ordered for Coumadin 7.5 mg PO prior to discharge; INR 1.9; advised to follow-up in the clinic for INR check * s/p IVC filter placement on 02/07/17 * Echocardiogram (02/07/17): systolic function; no evidence of right heart strain (official report available in the EMR) (2) GI bleed * H/H stable at 9.7; per GI, recommend for outpatient colonoscopy and EGD when patient is stable * monitor for bleeding episodes; none reported per patient * Patient is recieving IV Ferrlecet-->discharge on PO iron supplementation * low iron, normal TIBC, low iron saturation; low-normal ferritin; positive stool occult blood; elevated reticulocyte count * Patient reports prior colonoscopy in 2008, reports internal hemorrhoids; diverticulosis * Protonix 40 mg IVP daily (3) Symptomatic anemia * H/H stable; 9.7; no episodes of bleeding reported per patient * Heme/onc consult, Dr. Shyam Gallagher, help appreciated * GI consult: Dr Shepherd, help appreciated; have signed off; recommended for outpatient EGD/colonoscopy * Patient has required 4 units of PRBC on admission * low iron, normal TIBC, low iron saturation; low-normal ferritin; positive stool occult blood; elevated reticulocyte count * patient is on IV Ferrelect-->discharged on PO iron supplementation * Patient reports prior colonoscopy in 2008, reports internal hemorrhoids; diverticulosis (4) Positive occult stool blood test * Positive stool occult blood on 02/06/17 * Patient has had a prior colonoscopy in 2008 * GI consult, Dr. Shepherd, help appreciated * Hgb improved after recieving blood transfusion and has remained stable * Will need outpatient EGD/colonoscopy when stable per GI (5) Hiatal hernia * Ct Chest (02/06/17): bilateral pulmonary emboli, 7mm hyperdense nodule, moderate to large hiatal herniea, cholecystecomy clips-->advised to follow-up in the clinicor PMD to monitor pulmonary nodule and hiatal hernia * Monitor; no complaints of dysphagia at this time * Patient will need monitoring outpatient regarding pulmonary nodule (6) Prophylactic measure * DVT ppx: discharged on two week supply of Coumadin 7.5mg PO daily * GI ppx: protonix 40 mg IV daily
== END 2017-02-15 09:50 | disposition home or self-care (01) | DRG 539 ==
LOC: C.ER 10:27 → C.9E 15:18 → C.9I 17:13
PROVIDERS: ADMIT Hospitalist; ATTEND Hospitalist
PROC: 30233N1 Transfusion of Nonautologous Red Blood Cells into Peripheral Vein, Percutaneous Approach (ICD-10-PCS; 2017-02-06)
PROC: 06H03DZ Insertion of Intraluminal Device into Inferior Vena Cava, Percutaneous Approach (ICD-10-PCS; principal; 2017-02-07)
DX: I26.99 Other pulmonary embolism without acute cor pulmonale (principal); I82.442 Acute embolism and thrombosis of left tibial vein; K92.2 Gastrointestinal hemorrhage, unspecified; D64.9 Anemia, unspecified; R60.9 Edema, unspecified; R06.00 Dyspnea, unspecified; K64.8 Other hemorrhoids; Z87.891 Personal history of nicotine dependence; Z90.49 Acquired absence of other specified parts of digestive tract; Z88.0 Allergy status to penicillin; Z87.19 Personal history of other diseases of the digestive system

== ENCOUNTER 2017-08-20 09:35 | Day surgery (SDC) | payer MEDICAID ==
[2017-08-20] MEDS ORDERED: Lidocaine 2% Inj (20ml) ONE (11:02)
[2017-08-20] MEDS ORDERED: Iohexol 350mgl/ml 50 ML ONE (11:02)
[2017-08-20] MEDS ORDERED: Midazolam 2 MG/2 ML VIAL ONE (11:09)
[2017-08-20] MEDS ORDERED: Propofol 10 mg/ml Inj (20 ML) ONE (11:10)
--- NOTE | 2017-08-20 11:41 | CP.SDSHP ---
Same Day Surgery H & P - History Proposed Procedure: IVC filter removal Pre-Op Diagnosis: DVT, IVC filter - Allergies Allergies: Allergies Penicillins Allergy (Verified 08/16/17 08:26) RASH - Physical Exam Mental Status: Alert & Oriented x3 Neuro: WNL Heart: WNL Lungs: WNL - Impression Impression: Pt with a retrievable filter placed in the infrarenal IVC. Plan IVC filter removal. Informed consent obtained. Pt. Evaluated Today:Candidate for Anesthesia & Procedure: Yes (ASA 2 Malampati 3) - Date & Time Date: 08/20/17 Time: 11:15 Short Stay Discharge - Short Stay Discharge Admitting Diagnosis/Reason for Visit: DVT AND PE
--- NOTE | 2017-08-20 11:43 | PCM.SURG1 ---
Surgeon's Initial Post Op Note - Surgeon's Notes Surgeon: Kamaljit Cai MD Briquette Maker: NONE Type of Anesthesia: IV Sedation Pre-Operative Diagnosis: IVC filter, DVT Operative Findings: Inferior venagram showed no IVC thrombus. Infrarenal retrievable IVC filter present. Post-Operative Diagnosis: IVC filter, DVT Operation Performed: Infrarenal IVC filter removed using a loop snare and 11 fr long vascular sheet. Specimen/Specimens Removed: IVC filter Estimated Blood Loss: EBL {In ML}: 5 Blood Products Given: N/A Drains Used: No Drains Post-Op Condition: Good Date of Surgery/Procedure: 08/20/17 Time of Surgery/Procedure: 11:40
[2017-08-20 13:25] VITALS: O2SAT 100
[2017-08-20 13:39] VITALS: BP 126/71; PULSE 71; RESP 18; TEMP 97.5
== END 2017-08-20 13:35 | disposition hospice, home (50) ==
LOC: C.SPRAD 09:35
PROVIDERS: ATTEND Radiology Vascular & Interventional Radiology
DX: I82.409 Acute embolism and thrombosis of unspecified deep veins of unspecified lower extremity (principal)
CPT/HCPCS: 37193; J1644; J2001; J2250; J2704; J3010; Q9967